=== PATIENT | female | born 1940 ===

== ENCOUNTER 2021-12-17 07:24 | Outpatient (REF) | payer MEDICARE, SELFPAY ==
[2021-12-17 11:22] LABS: MANUAL DIFF FLAG NO
[2021-12-17 11:35] LABS: Basophils Percent Auto 0.3 % (0-2); Eosinophils Absolute Auto 0.1 X10*3/uL (0.0-0.4); Eosinophils Percent Auto 1.5 % (0-4); Hematocrit 41.6 % (37.0-47.0); Hemoglobin 13.2 g/dl (12.0-16.0); Imm Gran Abs Auto 0.01 X10*3/uL (0.00-0.03); Imm Gran Pct Auto 0.2 % (0.0-0.4); Lymphocytes Absolute Auto 2.2 X10*3/uL (1.2-4.9); Lymphocytes Percent Auto 36.1 % (20-40); Mean Corpuscular HGB Conc 31.7 g/dl (31.0-35.0); Mean Corpuscular Volume 97.7 fL (80.0-98.0); Mean Platelet Volume 10.6 fL (9.4-12.3); Monocytes Absolute Auto 0.4 X10*3/uL (0.1-1.2); Neutrophils Absolute Auto 3.3 x10*3/uL (2.0-8.3); Neutrophils Percent Auto 54.9 % (45-73); Platelet Count 204 X10*3/uL (160-400); Red Blood Count 4.26 X10*6/uL (4.20-5.50); Red Cell Distribution Width 12.9 % (11.0-16.0)
[2021-12-17 12:01] LABS: Alanine Aminotransferase 17 U/L (0-31); Albumin Level 4.2 g/dL (3.5-5.0); Alkaline Phosphatase 82 U/L (39-117); Anion Gap 12 (12-20); Aspartate Amino Transferase 20 U/L (5-31); Bilirubin Total 0.5 mg/dL (0.0-1.0); Blood Urea Nitrogen 18 mg/dL (9-16); Calcium 9.7 mg/dL (8.4-10.2); Carbon Dioxide 29 mmol/L (22-29); Chloride 104 mmol/L (96-108); Cholesterol 215 mg/dL; Estimated Glomerular Filt Rate > 60; Glucose Fasting 101 mg/dL (60-99); HDL Cholesterol 77 mg/dL; LDL Cholesterol Calculated 126 mg/dl; Potassium 4.3 mmol/L (3.3-5.1); Sodium 141 mmol/L (135-145); Total Protein 7.1 g/dL (6.5-8.0); Triglycerides 62 mg/dL
[2021-12-17 12:11] LABS: TSH reflex Free T4 1.03 uIU/mL (0.32-4.0); Vitamin D 25-OH Total 16.5 ng/mL (>30)
[2021-12-17 12:37] LABS: Folate 12.7 ng/mL (> or = 4.0); Vitamin B12 277 pg/mL (200-900)
== END 2021-12-17 07:25 | disposition home or self-care (01) ==
LOC: HO.HMGCLDS 07:24
PROVIDERS: Visit Provider Internal Medicine
DX: I10 Essential (primary) hypertension (principal); E53.8 Deficiency of other specified B group vitamins; E55.9 Vitamin D deficiency, unspecified
CPT/HCPCS: 36415; 80053; 80061; 82306; 82607; 82746; 84443; 85025

== ENCOUNTER 2022-11-28 10:03 | Outpatient (REF) | payer MEDICARE, SELFPAY ==
[2022-11-28 11:19] LABS: MANUAL DIFF FLAG NO
[2022-11-28 11:34] LABS: Basophils Percent Auto 0.7 % (0-2); Eosinophils Absolute Auto 0.1 X10*3/uL (0.0-0.4); Eosinophils Percent Auto 0.8 % (0-4); Hematocrit 42.6 % (37.0-47.0); Hemoglobin 13.9 g/dl (12.0-16.0); Imm Gran Abs Auto 0.02 X10*3/uL (0.00-0.03); Imm Gran Pct Auto 0.3 % (0.0-0.4); Lymphocytes Absolute Auto 1.8 X10*3/uL (1.2-4.9); Lymphocytes Percent Auto 29.4 % (20-40); Mean Corpuscular HGB Conc 32.6 g/dl (31.0-35.0); Mean Corpuscular Hemoglobin 31.1 pg (27.0-33.0); Mean Corpuscular Volume 95.3 fL (80.0-98.0); Monocytes Absolute Auto 0.3 X10*3/uL (0.1-1.2); Monocytes Percent Auto 5.5 % (2-11); Neutrophils Absolute Auto 3.9 x10*3/uL (2.0-8.3); Neutrophils Percent Auto 63.3 % (45-73); Platelet Count 227 X10*3/uL (160-400); Red Blood Count 4.47 X10*6/uL (4.20-5.50); Red Cell Distribution Width 12.6 % (11.0-16.0); White Blood Count 6.2 X10*3/uL (4.8-10.8)
[2022-11-28 12:02] LABS: Alanine Aminotransferase 18 U/L (0-31); Albumin Level 4.3 g/dL (3.5-5.0); Alkaline Phosphatase 84 U/L (39-117); Anion Gap 15 (12-20); Aspartate Amino Transferase 18 U/L (5-31); Bilirubin Total 0.8 mg/dL (0.0-1.0); Blood Urea Nitrogen 17 mg/dL (9-16); Calcium 9.5 mg/dL (8.4-10.2); Carbon Dioxide 29 mmol/L (22-29); Chloride 104 mmol/L (96-108); Cholesterol 229 mg/dL; Estimated Glomerular Filt Rate > 60; Glucose Fasting 96 mg/dL (60-99); HDL Cholesterol 74 mg/dL; LDL Cholesterol Calculated 143 mg/dl; Potassium 4.7 mmol/L (3.3-5.1); Sodium 143 mmol/L (135-145); Triglycerides 61 mg/dL
[2022-11-28 12:17] LABS: TSH reflex Free T4 0.69 uIU/mL (0.32-4.0); Vitamin B12 267 pg/mL (200-900); Vitamin D 25-OH Total 27.7 ng/mL (>30)
== END 2022-11-28 10:04 | disposition home or self-care (01) ==
LOC: HO.HMGCLDS 10:03
PROVIDERS: PCP Internal Medicine; Visit Provider Internal Medicine
DX: E53.8 Deficiency of other specified B group vitamins (principal); E55.9 Vitamin D deficiency, unspecified; I10 Essential (primary) hypertension
CPT/HCPCS: 36415; 80053; 80061; 82306; 82607; 82746; 84443; 85025

== ENCOUNTER 2023-06-27 08:12 | Outpatient (REF) | payer MEDICARE, SELFPAY ==
[2023-06-27 11:11] LABS: MANUAL DIFF FLAG NO
[2023-06-27 11:36] LABS: Basophils Percent Auto 0.5 % (0-2); Eosinophils Absolute Auto 0.2 X10*3/uL (0.0-0.4); Eosinophils Percent Auto 3.2 % (0-4); Hematocrit 40.7 % (37.0-47.0); Hemoglobin 13.1 g/dl (12.0-16.0); Imm Gran Abs Auto 0.02 X10*3/uL (0.00-0.03); Imm Gran Pct Auto 0.4 % (0.0-0.4); Lymphocytes Absolute Auto 2.1 X10*3/uL (1.2-4.9); Lymphocytes Percent Auto 37.3 % (20-40); Mean Corpuscular HGB Conc 32.2 g/dl (31.0-35.0); Mean Corpuscular Hemoglobin 30.8 pg (27.0-33.0); Mean Corpuscular Volume 95.8 fL (80.0-98.0); Mean Platelet Volume 9.8 fL (9.4-12.3); Monocytes Absolute Auto 0.4 X10*3/uL (0.1-1.2); Monocytes Percent Auto 6.4 % (2-11); Neutrophils Absolute Auto 2.9 x10*3/uL (2.0-8.3); Neutrophils Percent Auto 52.2 % (45-73); Platelet Count 232 X10*3/uL (160-400); Red Blood Count 4.25 X10*6/uL (4.20-5.50); Red Cell Distribution Width 12.7 % (11.0-16.0); White Blood Count 5.6 X10*3/uL (4.8-10.8)
[2023-06-27 11:54] LABS: Alanine Aminotransferase 15 U/L (0-31); Alkaline Phosphatase 69 U/L (39-117); Anion Gap 10 (12-20); Aspartate Amino Transferase 19 U/L (5-31); Bilirubin Total 0.7 mg/dL (0.0-1.0); Blood Urea Nitrogen 16 mg/dL (9-16); Calcium 9.5 mg/dL (8.4-10.2); Carbon Dioxide 29 mmol/L (22-29); Chloride 105 mmol/L (96-108); Cholesterol 204 mg/dL (<200); Estimated Glomerular Filt Rate > 60; Glucose Fasting 95 mg/dL (60-99); HDL Cholesterol 70 mg/dL (>40); LDL Cholesterol Calculated 124 mg/dL (<100); Potassium 4.1 mmol/L (3.3-5.1); Sodium 140 mmol/L (135-145); Total Protein 6.9 g/dL (6.5-8.0); Triglycerides 51 mg/dL (<150)
[2023-06-27 12:18] LABS: Folate 13.8 ng/mL (> or = 4.0); Vitamin B12 200 pg/mL (200-900)
== END 2023-06-27 08:13 | disposition home or self-care (01) ==
LOC: HO.HMGCLDS 08:12
PROVIDERS: PCP Internal Medicine; Visit Provider Internal Medicine
DX: I10 Essential (primary) hypertension (principal); E53.8 Deficiency of other specified B group vitamins; F41.9 Anxiety disorder, unspecified; E55.9 Vitamin D deficiency, unspecified
CPT/HCPCS: 36415; 80053; 80061; 82306; 82607; 82746; 85025

== ENCOUNTER 2023-07-01 10:05 | Outpatient (AMB) | payer MEDICARE, SELFPAY ==
[2023-07-01 10:14] VITALS: BP 128/66; PULSE 77; O2SAT 98; BMI 26.3
--- NOTE | 2023-07-01 10:14 | A.OFFPC_ITS ---
Vital Signs 07/01/23 10:14 Height 5 ft 5 in Weight 158 lb BMI 26.3 BP 128/66 Blood Pressure Location Lt brachial Position Sitting Pulse 77 Pulse Source Pulse Oximeter Pulse Oximetry (%) 98 Oxygen Delivery Method Room Air Intake Visit Reasons: 6m follow up HTN Intake Note: Pt is here today for 6 months follow up visit. Allergies No Known Allergies Allergy (Verified 07/01/23 10:16) Medication List - Last Reconciled 07/01/23 by Tess Kee MD amlodipine 5 mg PO BID aspirin 325 mg PO DAILY cholecalciferol (vitamin D3) 50 mcg PO DAILY naproxen sodium (Aleve) 220 mg PO BID PRN sertraline 50 mg PO DAILY vitamin P42-yhhoe acid 500-400 mcg 1 tab PO DAILY Tobacco use date assessed: 07/01/23 Fall risk assessment: No Falls in past year Last assessed Fall Risk: 07/01/23 Dental Screening Dental Screen Date: 07/01/23 Did you have a dental visit in the last 12 months?: No Did you have a dental problem in the last 6 months where you did not have access to dental care?: No Was dental information given to patient?: Patient declined HPI 6m follow up HTN HPI Details Pt presents for f/u HTN, stable on Amlodipine. She has been following low-cholesterol diet [facility] Medical History (Updated 07/01/23 @ 11:22 by Tess Kee MD) Vitamin D deficiency Vitamin B 12 deficiency Normal breast exam HTN (hypertension) Surgical History Hx of lymph node biopsy History of total left knee replacement History of ear surgery Family History Father Stroke Mother No problems noted. Social History Housing: House Patient Tobacco Use Status: Never used Tobacco e-Cigarette/Vaping Use: Never Used Current occupational status: retired Cognitive needs: No Hearing needs: No Vision needs: No Questionnaire Thrive Questionnaire Date Thrive assessed: 11/28/22 AUDIT C Alcohol Use Questionnaire (AUDIT-C) 1. How often do you have a drink containing alcohol?: Never 3. How often do you have six or more drinks on one occasion?: Never Total Score: 0 NÉSTOR-7 AMB Questionnaire NÉSTOR-7 Date NÉSTOR - 7 assessed: 11/28/22 Source: Developed by DrsJackie Pride, Noy Pop, Yomi Julio and colleagues, with an educational baudilio from [employer]. Review of Systems Const All systems reviewed & are unremarkable except as noted in HPI and below Reports no additional complaints Eyes Reports no additional complaints ENT Reports no additional complaints Card Reports no additional complaints Resp Reports no additional complaints GI Reports no additional complaints Physical exam (Primary Care) Vital Signs: Last Vital Signs Pulse 77 07/01/23 10:14 BP 128/66 07/01/23 10:14 Pulse Ox 98 07/01/23 10:14 Oxygen Delivery Method Room Air 07/01/23 10:14 BMI result Body Mass Index 26.3 Tobacco/Smoking Status: Tobacco use Status Tobacco use date assessed 07/01/23 07/01/23 10:19 Patient Tobacco Use Status Never used Tobacco 07/01/23 10:19 e-Cigarette/Vaping Use Never Used 07/01/23 10:19 Thrive Assessment: Date of Thrive Assessment Date Thrive assessed 11/28/22 07/01/23 10:19 Const General: no acute distress HENMT Ears: hearing grossly normal bilaterally Face and sinus: Yes normal facial exam Eyes General: appearance normal, both eyes and all related structures Neck Neck: Yes supple Resp Effort & Inspection: normal respiratory effort Auscultation: clear to auscultation bilaterally Cardio Rhythm: regular rhythm Heart sounds: S1 normal heart sound present and S2 normal heart sound present GI Inspection: Yes normal to inspection Palpation (GI): Soft to palpation Percussion: Yes normal to percussion Auscultation: normal bowel sounds Assessment and Plan Assessment & Plan (1) Hyperlipidemia: Comment: Diet controlled Code(s): E78.5 - Hyperlipidemia, unspecified (2) HTN (hypertension): Code(s): I10 - Essential (primary) hypertension Plan: Continue amlodipine and follow-up in 6 months with a fasting labs before Orders: Orders Comprehensive [place]yer. Panel Fast 6 Months E53.8 - Deficiency of other specified B group vitamins, E78.5 - Hyperlipidemia, unspecified, I10 - Essential (primary) hypertension Lipid Panel 6 Months E53.8 - Deficiency of other specified B group vitamins, E78.5 - Hyperlipidemia, unspecified, I10 - Essential (primary) hypertension Complete Blood Count Auto Diff 6 Months E53.8 - Deficiency of other specified B group vitamins, E78.5 - Hyperlipidemia, unspecified, I10 - Essential (primary) hypertension Vitamin B12 6 Months E53.8 - Deficiency of other specified B group vitamins, E78.5 - Hyperlipidemia, unspecified, I10 - Essential (primary) hypertension Medications: New vitamin D11-uuhdl acid 500-400 mcg administer with a meal 1 tab PO DAILY 90 tabs 3RF Discontinued sertraline Discontinued Reason: Doctor's Order 50 mg PO DAILY 90 tabs 0RF Coding Level of Care Code Est Pt Level 3 (64761) Diagnoses Hyperlipidemia E78.5 HTN (hypertension) I10
== END 2023-07-01 11:23 | disposition home or self-care (01) ==
PROVIDERS: Visit Provider Internal Medicine
DX: E78.5 Hyperlipidemia, unspecified (principal); I10 Essential (primary) hypertension
CPT/HCPCS: 99213

== ENCOUNTER 2023-10-23 12:59 | Outpatient (AMB) | payer MEDICARE, SELFPAY ==
[2023-10-23 13:34] VITALS: BP 142/80; PULSE 92; O2SAT 96; BMI 26.6
--- NOTE | 2023-10-23 13:34 | A.OFFPC_ITS ---
Vital Signs 10/23/23 13:34 Height 5 ft 5 in Weight 160 lb BMI 26.6 BP 142/80 H Blood Pressure Location Rt brachial Position Sitting Pulse 92 Pulse Source Pulse Oximeter Pulse Oximetry (%) 96 Oxygen Delivery Method Room Air Intake Visit Reasons: cold symptoms Intake Note: Pt is here today for a sick visit. Pt c/o cough,congestion chills, chest tightness and upper back pain and headaches since Friday. Allergies No Known Allergies Allergy (Verified 03/25/24 09:54) Medication List - Last Reconciled 10/23/23 by Tess Kee MD amlodipine 5 mg PO BID azithromycin For 250 mg dose pack: take 500 mg today (day 1), then 250 mg for 4 days (days 2-5) PO cholecalciferol (vitamin D3) 50 mcg PO DAILY folic acid 0.4 mg PO DAILY mecobalamin (vitamin B12) 500 mcg PO .QD vitamin S49-lccac acid 500-400 mcg 1 tab PO DAILY Tobacco use date assessed: 10/23/23 Fall risk assessment: No Falls in past year Last assessed Fall Risk: 10/23/23 Dental Screening Dental Screen Date: 10/23/23 Did you have a dental visit in the last 12 months?: Yes Did you have a dental problem in the last 6 months where you did not have access to dental care?: No Was dental information given to patient?: Patient has dentist HPI cold symptoms HPI Details Pt presents c/o sinus congestion, body aches, cough for 1 week, R side chest pain worse with deep inspiration. PFSH Medical History Vitamin D deficiency Vitamin B 12 deficiency Normal breast exam HTN (hypertension) Surgical History Hx of lymph node biopsy History of total left knee replacement History of ear surgery Family History Father Stroke Mother No problems noted. Social History Housing: House Patient Tobacco Use Status: Never used Tobacco e-Cigarette/Vaping Use: Never Used service: No Current occupational status: retired Cognitive needs: No Hearing needs: No Vision needs: No Questionnaire PHQ-9 Over the last 2 weeks, how often have you been bothered by any of the following problems? 1. Little interest or pleasure in doing things: not at all 2. Feeling down, depressed, or hopeless: not at all 3. Trouble falling or staying asleep, or sleeping too much: not at all 4. Feeling tired or having little energy: several days 5. Poor appetite or overeating: several days 6. Feeling bad about yourself - or that you are a failure or have let yourself or your family down: not at all 7. Trouble concentrating on things, such as reading the newspaper or watching television: not at all 8. Moving or speaking so slowly that other people could have noticed. Or the opposite - being so fidgety or restless that you have been moving around a lot more than usual: not at all 9. Thoughts that you would be better off or of hurting yourself in some way: not at all Total score: 2 Depression Screening Interpretation: Negative Depression Screening Done: Yes Source: Developed by Drs. Jack Pride, Noy Pop, Yomi Julio and colleagues, with an educational baudilio from [employer]. Thrive Questionnaire Date Thrive assessed: 10/23/23 I am a: Patient What is your living situation today?: I have a steady place to live Within the past 12 months, did the food you bought not last and you didn't have the money to get more?: Never true Within the past 12 months, did you worry whether your food would run out before you got money to buy more?: Never true Do you have trouble paying for medicines?: No Do you have trouble getting transportation to medical appointments?: No Do you have trouble paying your heating and electricity bill?: No Do you have trouble taking care of your child, family member or friend?: No Do you have trouble with day-to-day activities such as bathing, preparing meals, shopping, managing finances, etc.?: No Are you currently unemployed and looking for a job?: No Are you interested in more education?: No Please select the resources that you would like help with: None AUDIT C Alcohol Use Questionnaire (AUDIT-C) 1. How often do you have a drink containing alcohol?: Never 3. How often do you have six or more drinks on one occasion?: Never Total Score: 0 NÉSTOR-7 AMB Questionnaire NÉSTOR-7 Date NÉSTOR - 7 assessed: 10/23/23 Feeling nervous, anxious, or on edge: 0 = Not at all Not being able to stop or control worryin = Not at all Worrying too much about different things: 0 = Not at all Trouble relaxin = Not at all Being so restless that it is hard to sit still: 0 = Not at all Becoming easily annoyed or irritable: 0 = Not at all Feeling afraid as if something awful might happen: 0 = Not at all Total NÉSTOR-7 score (0-4 normal; 5-9 mild; 10-14 moderate; 15-21 severe): 0 Source: Developed by Drs. Jack Pride, Noy Pop, Yomi Julio and colleagues, with an educational baudilio from [employer]. Review of Systems Const All systems reviewed & are unremarkable except as noted in HPI and below Reports no additional complaints Eyes Reports no additional complaints ENT Reports no additional complaints Card Reports no additional complaints Resp Reports no additional complaints GI Reports no additional complaints Physical exam (Primary Care) Vital Signs: Last Vital Signs Pulse 92 10/23/23 13:34 BP 142/80 H 10/23/23 13:34 Pulse Ox 96 10/23/23 13:34 Oxygen Delivery Method Room Air 10/23/23 13:34 BMI result Body Mass Index 26.6 Tobacco/Smoking Status: Tobacco use Status Tobacco use date assessed 10/23/23 10/23/23 13:35 Patient Tobacco Use Status Never used Tobacco 10/23/23 13:35 e-Cigarette/Vaping Use Never Used 10/23/23 13:35 PHQ-9: PHQ-9 Score PHQ-9: Total score 2 10/23/23 14:21 Depression Screening Interpretation: Negative Thrive Assessment: Date of Thrive Assessment Date Thrive assessed 10/23/23 10/23/23 13:48 Const General: no acute distress HENMT Head: Yes normal to inspection Ears: hearing grossly normal bilaterally and TM's normal bilaterally Face and sinus: Yes normal facial exam Throat: Yes posterior oropharynx normal Eyes General: appearance normal, both eyes and all related structures Neck Neck: Yes supple Resp Effort & Inspection: normal respiratory effort Auscultation: clear to auscultation bilaterally Cardio Rhythm: regular rhythm Heart sounds: S1 normal heart sound present and S2 normal heart sound present Assessment and Plan Assessment & Plan (1) HTN (hypertension): Code(s): I10 - Essential (primary) hypertension Plan: Continue current medications (2) URI (upper respiratory infection): Code(s): J06.9 - Acute upper respiratory infection, unspecified Plan: Z-Cooper as prescribed and supportive care discussed with the patient Medications: New azithromycin For 250 mg dose pack: take 500 mg today (day 1), then 250 mg for 4 days (days 2-5) PO 6 tabs 0RF Coding Level of Care Code Est Pt Level 3 (87061) Diagnoses HTN (hypertension) I10 URI (upper respiratory infection) J06.9
== END 2023-10-23 14:39 | disposition home or self-care (01) ==
LOC: HO.HMGC 12:59
PROVIDERS: PCP Internal Medicine; Visit Provider Internal Medicine
DX: I10 Essential (primary) hypertension (principal); J06.9 Acute upper respiratory infection, unspecified
CPT/HCPCS: 99499

== ENCOUNTER 2023-11-27 08:24 | Outpatient (REF) | payer MEDICARE, SELFPAY ==
[2023-11-27 11:35] LABS: MANUAL DIFF FLAG NO
[2023-11-27 12:06] LABS: Basophils Percent Auto 0.5 % (0-2); Eosinophils Absolute Auto 0.1 X10*3/uL (0.0-0.4); Eosinophils Percent Auto 1.4 % (0-4); Hematocrit 41.8 % (37.0-47.0); Hemoglobin 13.6 g/dl (12.0-16.0); Imm Gran Abs Auto 0.01 X10*3/uL (0.00-0.03); Imm Gran Pct Auto 0.2 % (0.0-0.4); Lymphocytes Absolute Auto 2.3 X10*3/uL (1.2-4.9); Lymphocytes Percent Auto 40.2 % (20-40); Mean Corpuscular HGB Conc 32.5 g/dl (31.0-35.0); Mean Corpuscular Hemoglobin 31.6 pg (27.0-33.0); Mean Platelet Volume 9.7 fL (9.4-12.3); Monocytes Absolute Auto 0.4 X10*3/uL (0.1-1.2); Monocytes Percent Auto 6.3 % (2-11); Neutrophils Absolute Auto 2.9 x10*3/uL (2.0-8.3); Neutrophils Percent Auto 51.4 % (45-73); Platelet Count 265 X10*3/uL (160-400); Red Blood Count 4.31 X10*6/uL (4.20-5.50); Red Cell Distribution Width 12.8 % (11.0-16.0); White Blood Count 5.7 X10*3/uL (4.8-10.8)
[2023-11-27 12:16] LABS: Alanine Aminotransferase 16 U/L (0-31); Alkaline Phosphatase 78 U/L (39-117); Anion Gap 9 (12-20); Aspartate Amino Transferase 19 U/L (5-31); Bilirubin Total 0.6 mg/dL (0.0-1.0); Blood Urea Nitrogen 14 mg/dL (9-16); Calcium 9.3 mg/dL (8.4-10.2); Carbon Dioxide 31 mmol/L (22-29); Chloride 104 mmol/L (96-108); Cholesterol 221 mg/dL (<200); Estimated Glomerular Filt Rate > 60; Glucose Fasting 96 mg/dL (60-99); HDL Cholesterol 79 mg/dL (>40); LDL Cholesterol Calculated 131 mg/dL (<100); Potassium 4.3 mmol/L (3.3-5.1); Sodium 140 mmol/L (135-145); Total Protein 7.2 g/dL (6.5-8.0); Triglycerides 57 mg/dL (<150)
[2023-11-27 12:29] LABS: Vitamin B12 493 pg/mL (200-900)
== END 2023-11-27 08:25 | disposition home or self-care (01) ==
LOC: HO.HMGCLDS 08:24
PROVIDERS: PCP Internal Medicine; Visit Provider Internal Medicine
DX: E78.5 Hyperlipidemia, unspecified (principal); E53.8 Deficiency of other specified B group vitamins; I10 Essential (primary) hypertension
CPT/HCPCS: 36415; 80053; 80061; 82607; 85025

== ENCOUNTER 2023-12-01 10:17 | Outpatient (AMB) | payer MEDICARE, SELFPAY ==
[2023-12-01 10:19] VITALS: BP 146/76; PULSE 77; O2SAT 98; BMI 27.0
--- NOTE | 2023-12-01 10:19 | A.OFFPC_ITS ---
Vital Signs 12/01/23 10:19 Height 5 ft 5 in Weight 162 lb BMI 27.0 BP 146/76 H Blood Pressure Location Lt brachial Position Sitting Pulse 77 Pulse Source Pulse Oximeter Pulse Oximetry (%) 98 Oxygen Delivery Method Room Air Intake Visit Reasons: Annual PE Intake Note: Pt is here today for PE. Allergies No Known Allergies Allergy (Verified 12/01/23 10:21) Medication List - Last Reconciled 12/01/23 by Tess Kee MD amlodipine 10 mg PO DAILY cholecalciferol (vitamin D3) 50 mcg PO DAILY folic acid 0.4 mg PO DAILY mecobalamin (vitamin B12) 500 mcg PO .QD metoprolol succinate ER 25 mg PO DAILY vitamin A63-bhdmv acid 500-400 mcg 1 tab PO DAILY Tobacco use date assessed: 12/01/23 Fall risk assessment: No Falls in past year Last assessed Fall Risk: 12/01/23 Dental Screening Dental Screen Date: 12/01/23 Did you have a dental visit in the last 12 months?: Yes Did you have a dental problem in the last 6 months where you did not have access to dental care?: No Was dental information given to patient?: Patient has dentist HPI Annual PE HPI Details Patient presents for physical. She complains of insomnia an episode of mid chest discomfort when under lot of stress. Patient had a cardiac workup in the past included echocardiogram EKG possible stress test which was negative. She exercises 5 times a week at [employer] riding a stationary bike and elliptical without exertional chest pain shortness for breath. Patient used to take sertraline after her son from liver failure. She denies suicidal ideation or depression. Patient has not been taking amlodipine twice a day on daily basis only when her blood pressure is high and she has a headache. [facility] Medical History Vitamin D deficiency Vitamin B 12 deficiency Normal breast exam HTN (hypertension) Surgical History Hx of lymph node biopsy History of total left knee replacement History of ear surgery Family History Father Stroke Mother No problems noted. Social History Housing: House Patient Tobacco Use Status: Never used Tobacco e-Cigarette/Vaping Use: Never Used Current occupational status: retired Cognitive needs: No Hearing needs: No Vision needs: No Questionnaire PHQ-9 Over the last 2 weeks, how often have you been bothered by any of the following problems? 1. Little interest or pleasure in doing things: not at all 2. Feeling down, depressed, or hopeless: not at all 3. Trouble falling or staying asleep, or sleeping too much: not at all 4. Feeling tired or having little energy: not at all 5. Poor appetite or overeating: not at all 6. Feeling bad about yourself - or that you are a failure or have let yourself or your family down: not at all 7. Trouble concentrating on things, such as reading the newspaper or watching television: not at all 8. Moving or speaking so slowly that other people could have noticed. Or the opposite - being so fidgety or restless that you have been moving around a lot more than usual: not at all 9. Thoughts that you would be better off or of hurting yourself in some way: not at all Total score: 0 Depression Screening Interpretation: Negative Depression Screening Done: Yes Source: Developed by Drs. Jack Pride, Noy Pop, Yomi Julio and colleagues, with an educational baudilio from [employer]. Thrive Questionnaire Date Thrive assessed: 12/01/23 I am a: Patient What is your living situation today?: I have a steady place to live Within the past 12 months, did the food you bought not last and you didn't have the money to get more?: Never true Within the past 12 months, did you worry whether your food would run out before you got money to buy more?: Never true Do you have trouble paying for medicines?: No Do you have trouble getting transportation to medical appointments?: No Do you have trouble paying your heating and electricity bill?: No Do you have trouble taking care of your child, family member or friend?: No Do you have trouble with day-to-day activities such as bathing, preparing meals, shopping, managing finances, etc.?: No Are you currently unemployed and looking for a job?: No Are you interested in more education?: No Please select the resources that you would like help with: None Currently or been in a relationship where the following occur: no concerns reported THRIVE Score: 0 AUDIT C Alcohol Use Questionnaire (AUDIT-C) 1. How often do you have a drink containing alcohol?: Never 3. How often do you have six or more drinks on one occasion?: Never Total Score: 0 NÉSTOR-7 AMB Questionnaire NÉSTOR-7 Date NÉSTOR - 7 assessed: 10/23/23 Source: Developed by Drs. Jack Pride, Noy Pop, Yomi Julio and colleagues, with an educational baudilio from [employer]. Review of Systems Const All systems reviewed & are unremarkable except as noted in HPI and below Reports no additional complaints Eyes Reports no additional complaints ENT Reports no additional complaints Card Reports no additional complaints Resp Reports no additional complaints GI Reports no additional complaints Reports no additional complaints Musc Reports no additional complaints Physical exam (Primary Care) Vital Signs: Last Vital Signs Pulse 77 12/01/23 10:19 BP 146/76 H 12/01/23 10:19 Pulse Ox 98 12/01/23 10:19 Oxygen Delivery Method Room Air 12/01/23 10:19 BMI result Body Mass Index 27.0 Tobacco/Smoking Status: Tobacco use Status Tobacco use date assessed 12/01/23 12/01/23 10:25 Patient Tobacco Use Status Never used Tobacco 12/01/23 10:25 e-Cigarette/Vaping Use Never Used 12/01/23 10:19 PHQ-9: PHQ-9 Score PHQ-9: Total score 0 12/01/23 10:45 Depression Screening Interpretation: Negative Thrive Assessment: Date of Thrive Assessment Date Thrive assessed 12/01/23 12/01/23 10:25 Currently or been in a relationship where the following occur: no concerns reported Const General: no acute distress HENMT Head: Yes normal to inspection Face and sinus: Yes normal facial exam Mouth: Normal oral and palatal mucosa present Throat: Yes posterior oropharynx normal Eyes General: appearance normal, both eyes and all related structures Neck Neck: Yes no lymphadenopathy and Yes supple Resp Effort & Inspection: normal respiratory effort Auscultation: clear to auscultation bilaterally Cardio Rhythm: regular rhythm Heart sounds: S1 normal heart sound present and S2 normal heart sound present GI Inspection: Yes normal to inspection Palpation (GI): Soft to palpation Percussion: Yes normal to percussion Auscultation: normal bowel sounds Assessment and Plan Assessment & Plan (1) Hyperlipidemia: Comment: Diet controlled, patient refuses statin Code(s): E78.5 - Hyperlipidemia, unspecified Plan: Continue low-cholesterol diet (2) HTN (hypertension): Code(s): I10 - Essential (primary) hypertension Plan: Change amlodipine to 10 mg in the morning and add metoprolol succinate 25 mg q.h.s., follow-up in 1 month (3) Annual physical exam: Code(s): Z00.00 - Encounter for general adult medical examination without abnormal findings Plan: Well-balanced diet regular exercise stress management discussed with the patient (4) Anxiety: Code(s): F41.9 - Anxiety disorder, unspecified Plan: Stress management discussed with the patient. (5) Chest pain: Comment: Negative cardiac workup 2021 Code(s): R07.9 - Chest pain, unspecified Plan: EKG showed normal sinus rhythm left axis deviation no acute ST-T changes. Start 25 mg of metoprolol succinate q.h.s. follow-up in 1 month Orders: Orders AMB EKG-In Office Today E78.5 - Hyperlipidemia, unspecified, I10 - Essential (primary) hypertension, R07.9 - Chest pain, unspecified Medications: New amlodipine 10 mg PO DAILY 90 tabs 1RF metoprolol succinate ER 25 mg PO DAILY 90 tabs 0RF Discontinued amlodipine Discontinued Reason: Doctor's Order 5 mg PO BID 180 tabs 3RF Coding Level of Care Code Est Pt Prev Care >65y(30334) Diagnoses Hyperlipidemia E78.5 HTN (hypertension) I10 Annual physical exam Z00.00 Anxiety F41.9 Chest pain R07.9
== END 2023-12-01 11:09 | disposition home or self-care (01) ==
PROVIDERS: PCP Internal Medicine; Visit Provider Internal Medicine
DX: E78.5 Hyperlipidemia, unspecified (principal); I10 Essential (primary) hypertension; Z00.00 Encounter for general adult medical examination without abnormal findings; F41.9 Anxiety disorder, unspecified; R07.9 Chest pain, unspecified
CPT/HCPCS: 99397

== ENCOUNTER 2024-01-08 11:04 | Outpatient (AMB) | payer MEDICARE, SELFPAY ==
[2024-01-08 11:41] VITALS: BP 126/66; PULSE 72; O2SAT 97; BMI 26.8
--- NOTE | 2024-01-08 11:41 | MHC.PC.OV ---
Vital Signs 01/08/24 11:41 Height 5 ft 5 in Weight 161 lb BMI 26.8 BP 126/66 Blood Pressure Location Lt brachial Position Sitting Pulse 72 Pulse Source Pulse Oximeter Pulse Oximetry (%) 97 Oxygen Delivery Method Room Air Intake Visit Reasons: 1 month follow up Allergies No Known Allergies Allergy (Verified 01/08/24 11:42) Medication List - Last Reconciled 01/08/24 by Tess Kee MD amlodipine 10 mg PO DAILY cholecalciferol (vitamin D3) 50 mcg PO DAILY folic acid 0.4 mg PO DAILY mecobalamin (vitamin B12) 500 mcg PO .QD metoprolol succinate ER 25 mg PO DAILY vitamin E16-qnupk acid 500-400 mcg 1 tab PO DAILY Tobacco use date assessed: 12/01/23 HPI 1 month follow up HPI Details Pt presents for f/u HTN, improved. Patient reports feeling calmer taking metoprolol at night and able to sleep better. [facility] Medical History Vitamin D deficiency Vitamin B 12 deficiency Normal breast exam HTN (hypertension) Surgical History Hx of lymph node biopsy History of total left knee replacement History of ear surgery Family History Father Stroke Mother No problems noted. Social History Housing: House Patient Tobacco Use Status: Never used Tobacco e-Cigarette/Vaping Use: Never Used Current occupational status: retired Cognitive needs: No Hearing needs: No Vision needs: No Questionnaire Thrive Questionnaire Date Thrive assessed: 12/01/23 NÉSTOR-7 AMB Questionnaire NÉSTOR-7 Date NÉSTOR - 7 assessed: 10/23/23 Source: Developed by Drs. Jack Pride, Noy Pop, Yomi Julio and colleagues, with an educational baudilio from [employer]. Review of Systems Const All systems reviewed & are unremarkable except as noted in HPI and below Reports no additional complaints Eyes Reports no additional complaints ENT Reports no additional complaints Card Reports no additional complaints Resp Reports no additional complaints GI Reports no additional complaints Reports no additional complaints Physical exam (Primary Care) Vital Signs: Last Vital Signs Pulse 72 01/08/24 11:41 BP 126/66 01/08/24 11:41 Pulse Ox 97 01/08/24 11:41 Oxygen Delivery Method Room Air 01/08/24 11:41 BMI result Body Mass Index 26.8 Tobacco/Smoking Status: Tobacco use Status Tobacco use date assessed 12/01/23 01/08/24 11:43 Patient Tobacco Use Status Never used Tobacco 01/08/24 11:43 e-Cigarette/Vaping Use Never Used 01/08/24 11:43 Thrive Assessment: Date of Thrive Assessment Date Thrive assessed 12/01/23 01/08/24 11:43 Const General: no acute distress HENMT Head: Yes normal to inspection Ears: hearing grossly normal bilaterally Face and sinus: Yes normal facial exam Eyes General: appearance normal, both eyes and all related structures Neck Neck: Yes no lymphadenopathy and Yes supple Resp Effort & Inspection: normal respiratory effort Auscultation: clear to auscultation bilaterally Cardio Rhythm: regular rhythm Heart sounds: S1 normal heart sound present and S2 normal heart sound present Assessment and Plan Assessment & Plan (1) HTN (hypertension): Code(s): I10 - Essential (primary) hypertension Plan: Continue current medications, follow-up in 4 months (2) Hyperlipidemia: Comment: Diet controlled, patient refuses statin Code(s): E78.5 - Hyperlipidemia, unspecified Plan: Continue low-cholesterol diet Medications: Refilled metoprolol succinate ER 25 mg PO DAILY 90 tabs 3RF Coding Level of Care Code Est Pt Level 3 (54287) Diagnoses HTN (hypertension) I10 Hyperlipidemia E78.5
== END 2024-01-08 12:54 | disposition home or self-care (01) ==
PROVIDERS: PCP Internal Medicine; Visit Provider Internal Medicine
DX: I10 Essential (primary) hypertension (principal); E78.5 Hyperlipidemia, unspecified
CPT/HCPCS: 99213

== ENCOUNTER 2024-03-10 12:52 | Outpatient (AMB) | payer MEDICARE, SELFPAY ==
[2024-03-10 13:13] VITALS: BP 130/80; PULSE 84; O2SAT 97; BMI 26.6
--- NOTE | 2024-03-10 13:13 | MHC.PC.OV ---
Vital Signs 03/10/24 13:13 Height 5 ft 5 in Weight 160 lb BMI 26.6 BP 130/80 Blood Pressure Location Rt brachial Position Sitting Pulse 84 Pulse Source Pulse Oximeter Pulse Oximetry (%) 97 Oxygen Delivery Method Room Air Intake Visit Reasons: swollen ankles Intake Note: Pt is here today for a sick visit. Pt c/o swelling and pain in her ankles for almost a month. Pt also c/o panful lump on the L side of her abdomen. Allergies No Known Allergies Allergy (Verified 03/10/24 13:17) Medication List - Last Reconciled 03/10/24 by Tess Kee MD amlodipine 5 mg PO DAILY cholecalciferol (vitamin D3) 50 mcg PO DAILY folic acid 0.4 mg PO DAILY furosemide (Lasix) 20 mg PO DAILY mecobalamin (vitamin B12) 500 mcg PO .QD metoprolol succinate ER 25 mg PO DAILY valsartan 160 mg PO DAILY vitamin M35-esgpi acid 500-400 mcg 1 tab PO DAILY Tobacco use date assessed: 03/10/24 Fall risk assessment: No Falls in past year Last assessed Fall Risk: 03/10/24 Dental Screening Dental Screen Date: 12/01/23 HPI swollen ankles HPI Details Patient complains of increased lower extremity swelling since she increased dose of amlodipine to 10 mg a day. Patient denies dyspnea on exertion PND orthopnea. [facility] Medical History Vitamin D deficiency Vitamin B 12 deficiency Normal breast exam HTN (hypertension) Surgical History Hx of lymph node biopsy History of total left knee replacement History of ear surgery Family History Father Stroke Mother No problems noted. Social History Housing: House Patient Tobacco Use Status: Never used Tobacco e-Cigarette/Vaping Use: Never Used service: No Current occupational status: retired Cognitive needs: No Hearing needs: No Vision needs: No Questionnaire Thrive Questionnaire Date Thrive assessed: 12/01/23 NÉSTOR-7 AMB Questionnaire NÉSTOR-7 Date NÉSTOR - 7 assessed: 10/23/23 Source: Developed by Drs. Jack Pride, Noy Pop, Yomi Julio and colleagues, with an educational baudilio from [employer]. Review of Systems Const All systems reviewed & are unremarkable except as noted in HPI and below ENT Reports no additional complaints Card Reports no additional complaints Resp Reports no additional complaints GI Reports no additional complaints Reports no additional complaints Physical exam (Primary Care) Vital Signs: Last Vital Signs Pulse 84 03/10/24 13:13 Pulse Ox 97 03/10/24 13:13 Oxygen Delivery Method Room Air 03/10/24 13:13 BMI result Body Mass Index 26.6 Tobacco/Smoking Status: Tobacco use Status Tobacco use date assessed 03/10/24 03/10/24 13:21 Patient Tobacco Use Status Never used Tobacco 03/10/24 13:21 e-Cigarette/Vaping Use Never Used 03/10/24 13:14 Thrive Assessment: Date of Thrive Assessment Date Thrive assessed 12/01/23 03/10/24 13:14 Const General: no acute distress HENMT Head: Yes normal to inspection Eyes General: appearance normal, both eyes and all related structures Resp Effort & Inspection: normal respiratory effort Auscultation: clear to auscultation bilaterally Cardio Rhythm: regular rhythm Heart sounds: S1 normal heart sound present and S2 normal heart sound present GI Inspection: Yes normal to inspection Palpation (GI): Soft to palpation Percussion: Yes normal to percussion Auscultation: normal bowel sounds Extrem Other: Plus two pitting edema bilaterally Assessment and Plan Assessment & Plan (1) HTN (hypertension): Code(s): I10 - Essential (primary) hypertension Plan: Decrease amlodipine to 5 mg a day and add valsartan 160 mg. Patient will return for [place] blood pressure check in 2 weeks and basic metabolic panel will be obtained. Low-sodium diet and elevation of lower extremities are recommended. furosemide 20 mg for 3 days is prescribed. Orders: Orders Basic Metabolic Panel 2 Weeks I10 - Essential (primary) hypertension Medications: New furosemide (Lasix) 1 qd for 3 days, then 1 qod 20 mg PO DAILY 7 tabs 0RF valsartan 160 mg PO DAILY 90 tabs 0RF amlodipine 5 mg PO DAILY 90 tabs 0RF Discontinued amlodipine Discontinued Reason: Doctor's Order 10 mg PO DAILY 90 tabs 1RF Coding Level of Care Code Est Pt Level 3 (50632) Diagnoses HTN (hypertension) I10
== END 2024-03-10 14:37 | disposition home or self-care (01) ==
PROVIDERS: PCP Internal Medicine; Visit Provider Internal Medicine
DX: I10 Essential (primary) hypertension (principal)
CPT/HCPCS: 99213

== ENCOUNTER 2024-03-25 09:35 | Outpatient (REF) | payer MEDICARE, SELFPAY ==
[2024-03-25 11:16] LABS: Anion Gap 13 (12-20); Blood Urea Nitrogen 15 mg/dL (9-16); Calcium 9.6 mg/dL (8.4-10.2); Carbon Dioxide 27 mmol/L (22-29); Chloride 105 mmol/L (96-108); Estimated Glomerular Filt Rate > 60; Glucose Random 94 mg/dL (60-115); Sodium 141 mmol/L (135-145)
== END 2024-03-25 09:36 | disposition home or self-care (01) ==
LOC: HO.HMGCLDS 09:35
PROVIDERS: PCP Internal Medicine; Visit Provider Internal Medicine
DX: I10 Essential (primary) hypertension (principal)
CPT/HCPCS: 36415; 80048

== ENCOUNTER 2024-03-25 09:48 | Outpatient (AMB) | payer MEDICARE, SELFPAY ==
[2024-03-25 09:54] VITALS: BP 134/66; PULSE 90; O2SAT 95; BMI 25.8
--- NOTE | 2024-03-25 09:54 | A.OFFPC_ITS ---
Vital Signs 03/25/24 09:54 Height 5 ft 5 in Weight 155 lb BMI 25.8 BP 134/66 Blood Pressure Location Rt brachial Position Sitting Pulse 90 Pulse Source Pulse Oximeter Pulse Oximetry (%) 95 Oxygen Delivery Method Room Air Intake Visit Reasons: 2 week follow up Intake Note: Pt is here today for 2 weeks follow up on edema and BP. Allergies No Known Allergies Allergy (Verified 03/25/24 09:54) Medication List - Last Reconciled 03/25/24 by Tess Kee MD amlodipine 5 mg PO DAILY cholecalciferol (vitamin D3) 50 mcg PO DAILY folic acid 0.4 mg PO DAILY furosemide (Lasix) 20 mg PO DAILY mecobalamin (vitamin B12) 500 mcg PO .QD metoprolol succinate ER 25 mg PO DAILY valsartan 160 mg PO DAILY vitamin H06-pwarh acid 500-400 mcg 1 tab PO DAILY Tobacco use date assessed: 03/10/24 Dental Screening Dental Screen Date: 12/01/23 HPI 2 week follow up HPI Details Pt presents for f/u HTN and lower extremities swelling better since changing the meds. PFSH Medical History Vitamin D deficiency Vitamin B 12 deficiency Normal breast exam HTN (hypertension) Surgical History Hx of lymph node biopsy History of total left knee replacement History of ear surgery Family History Father Stroke Mother No problems noted. Social History Housing: House Patient Tobacco Use Status: Never used Tobacco e-Cigarette/Vaping Use: Never Used service: No Current occupational status: retired Cognitive needs: No Hearing needs: No Vision needs: No Questionnaire Thrive Questionnaire Date Thrive assessed: 12/01/23 NÉSTOR-7 AMB Questionnaire NÉSTOR-7 Date NÉSTOR - 7 assessed: 10/23/23 Source: Developed by Drs. Jack Pride, Noy Pop, Yomi Julio and colleagues, with an educational baudilio from [email or web address]. Review of Systems Const All systems reviewed & are unremarkable except as noted in HPI and below ENT Reports no additional complaints Card Reports no additional complaints Resp Reports no additional complaints GI Reports no additional complaints Reports no additional complaints Physical exam (Primary Care) Vital Signs: Last Vital Signs Pulse 90 03/25/24 09:54 BP 134/66 03/25/24 09:54 Pulse Ox 95 03/25/24 09:54 Oxygen Delivery Method Room Air 03/25/24 09:54 BMI result Body Mass Index 25.8 Tobacco/Smoking Status: Tobacco use Status Tobacco use date assessed 03/10/24 03/25/24 09:55 Patient Tobacco Use Status Never used Tobacco 03/25/24 09:55 e-Cigarette/Vaping Use Never Used 03/25/24 09:55 Thrive Assessment: Date of Thrive Assessment Date Thrive assessed 12/01/23 03/25/24 09:55 Const General: no acute distress HENMT Head: Yes normal to inspection Face and sinus: Yes normal facial exam Neck Neck: Yes supple Resp Effort & Inspection: normal respiratory effort Auscultation: clear to auscultation bilaterally Cardio Rhythm: regular rhythm Heart sounds: S1 normal heart sound present and S2 normal heart sound present GI Inspection: Yes normal to inspection Palpation (GI): Soft to palpation Percussion: Yes normal to percussion Auscultation: normal bowel sounds Assessment and Plan Assessment & Plan (1) HTN (hypertension): Code(s): I10 - Essential (primary) hypertension Plan: Continue current medications (2) Hyperlipidemia: Comment: Diet controlled, patient refuses statin Code(s): E78.5 - Hyperlipidemia, unspecified Plan: Continue low-cholesterol diet Orders: Orders Comprehensive [place]. Panel Fast 1 Month E78.5 - Hyperlipidemia, unspecified, I10 - Essential (primary) hypertension Lipid Panel 1 Month E78.5 - Hyperlipidemia, unspecified, I10 - Essential (primary) hypertension Coding Level of Care Code Est Pt Level 3 (74015) Diagnoses HTN (hypertension) I10 Hyperlipidemia E78.5
== END 2024-03-25 12:18 | disposition home or self-care (01) ==
LOC: HO.HMGC 09:48
PROVIDERS: PCP Internal Medicine; Visit Provider Internal Medicine
DX: I10 Essential (primary) hypertension (principal); E78.5 Hyperlipidemia, unspecified
CPT/HCPCS: 99213

== ENCOUNTER 2024-05-05 09:54 | Outpatient (AMB) | payer MEDICARE, SELFPAY ==
[2024-05-05 10:04] VITALS: BP 128/66; PULSE 79; O2SAT 97; BMI 25.5
--- NOTE | 2024-05-05 10:04 | A.OFFPC_ITS ---
Vital Signs 05/05/24 10:04 Height 5 ft 5 in Weight 153 lb BMI 25.5 BP 128/66 Blood Pressure Location Lt brachial Position Sitting Pulse 79 Pulse Source Pulse Oximeter Pulse Oximetry (%) 97 Oxygen Delivery Method Room Air Intake Visit Reasons: 4 month follow up Intake Note: Pt is here today for 4 month follow up visit on HTN. Allergies No Known Allergies Allergy (Verified 05/05/24 10:13) Medication List - Last Reconciled 05/05/24 by Tess Kee MD amlodipine 5 mg PO DAILY cholecalciferol (vitamin D3) 50 mcg PO DAILY folic acid 0.4 mg PO DAILY mecobalamin (vitamin B12) 500 mcg PO .QD valsartan 160 mg PO DAILY vitamin P10-gjvuc acid 500-400 mcg 1 tab PO DAILY Tobacco use date assessed: 05/05/24 Dental Screening Dental Screen Date: 12/01/23 HPI 4 month follow up HPI0 Details Patient presents for the follow-up on hypertension controlled on current medications. [facility] Medical History Vitamin D deficiency Vitamin B 12 deficiency Normal breast exam HTN (hypertension) Surgical History Hx of lymph node biopsy History of total left knee replacement History of ear surgery Family History Father Stroke Mother No problems noted. Social History Housing: House Patient Tobacco Use Status: Never used Tobacco e-Cigarette/Vaping Use: Never Used service: No Current occupational status: retired Cognitive needs: No Hearing needs: No Vision needs: No Questionnaire PHQ-9 Over the last 2 weeks, how often have you been bothered by any of the following problems? 1. Little interest or pleasure in doing things: not at all 2. Feeling down, depressed, or hopeless: several days 3. Trouble falling or staying asleep, or sleeping too much: several days 4. Feeling tired or having little energy: not at all 5. Poor appetite or overeating: not at all 6. Feeling bad about yourself - or that you are a failure or have let yourself or your family down: not at all 7. Trouble concentrating on things, such as reading the newspaper or watching television: not at all 8. Moving or speaking so slowly that other people could have noticed. Or the opposite - being so fidgety or restless that you have been moving around a lot more than usual: not at all 9. Thoughts that you would be better off or of hurting yourself in some way: not at all Total score: 2 Depression Screening Interpretation: Negative Depression Screening Done: Yes Source: Developed by Drs. Jack Pride, Noy Pop, Yomi Julio and colleagues, with an educational baudilio from [employer]. Thrive Questionnaire Date Thrive assessed: 05/05/24 I am a: Patient What is your living situation today?: I choose not to answer this question Within the past 12 months, did the food you bought not last and you didn't have the money to get more?: I choose not to answer this question Within the past 12 months, did you worry whether your food would run out before you got money to buy more?: I choose not to answer this question Do you have trouble paying for medicines?: I choose not to answer this question Do you have trouble getting transportation to medical appointments?: I choose not to answer this question Do you have trouble paying your heating and electricity bill?: I choose not to answer this question Do you have trouble taking care of your child, family member or friend?: I choose not to answer this question Do you have trouble with day-to-day activities such as bathing, preparing meals, shopping, managing finances, etc.?: I choose not to answer this question Are you currently unemployed and looking for a job?: I choose not to answer this question Are you interested in more education?: I choose not to answer this question Please select the resources that you would like help with: Housing/Longterm Currently or been in a relationship where the following occur: I choose not to answer THRIVE Score: 0 AUDIT C Alcohol Use Questionnaire (AUDIT-C) 1. How often do you have a drink containing alcohol?: Never Total Score: 0 NÉSTOR-7 AMB Questionnaire NÉSTOR-7 Date NÉSTOR - 7 assessed: 05/05/24 Feeling nervous, anxious, or on edge: 0 = Not at all Not being able to stop or control worryin = Not at all Worrying too much about different things: 0 = Not at all Trouble relaxin = Not at all Being so restless that it is hard to sit still: 0 = Not at all Becoming easily annoyed or irritable: 0 = Not at all Feeling afraid as if something awful might happen: 0 = Not at all Total NÉSTOR-7 score (0-4 normal; 5-9 mild; 10-14 moderate; 15-21 severe): 0 Source: Developed by Drs. Jack Pride, Noy Pop, Yomi Julio and colleagues, with an educational baudilio from [employer]. Review of Systems Const All systems reviewed & are unremarkable except as noted in HPI and below Eyes Reports no additional complaints ENT Reports no additional complaints Card Reports no additional complaints Resp Reports no additional complaints GI Reports no additional complaints Reports no additional complaints Physical exam (Primary Care) Vital Signs: Last Vital Signs Pulse 79 05/05/24 10:04 BP 128/66 05/05/24 10:04 Pulse Ox 97 05/05/24 10:04 Oxygen Delivery Method Room Air 05/05/24 10:04 BMI result Body Mass Index 25.5 Tobacco/Smoking Status: Tobacco use Status Tobacco use date assessed 05/05/24 05/05/24 10:15 Patient Tobacco Use Status Never used Tobacco 05/05/24 10:15 e-Cigarette/Vaping Use Never Used 05/05/24 10:04 PHQ-9: PHQ-9 Score PHQ-9: Total score 2 05/05/24 10:15 Depression Screening Interpretation: Negative Thrive Assessment: Date of Thrive Assessment Date Thrive assessed 05/05/24 05/05/24 10:15 Currently or been in a relationship where the following occur: I choose not to answer Const General: no acute distress HENMT Head: Yes normal to inspection Face and sinus: Yes normal facial exam Neck Neck: Yes supple Resp Effort & Inspection: normal respiratory effort Auscultation: clear to auscultation bilaterally Cardio Rhythm: regular rhythm Heart sounds: S1 normal heart sound present and S2 normal heart sound present Assessment and Plan Assessment & Plan (1) HTN (hypertension): Code(s): I10 - Essential (primary) hypertension Plan: Continue current medications follow-up in 4 months with a fasting labs before (2) Hyperlipidemia: Comment: Diet controlled, patient refuses statin Code(s): E78.5 - Hyperlipidemia, unspecified Plan: Continue low-cholesterol diet Orders: Orders Lipid Panel 4 Months E78.5 - Hyperlipidemia, unspecified, I10 - Essential (primary) hypertension Comprehensive [place]. Panel Fast 4 Months E78.5 - Hyperlipidemia, unspecified, I10 - Essential (primary) hypertension Complete Blood Count Auto Diff 4 Months E78.5 - Hyperlipidemia, unspecified, I10 - Essential (primary) hypertension TSH reflex Free T4 4 Months E78.5 - Hyperlipidemia, unspecified, I10 - Essential (primary) hypertension Medications: Refilled amlodipine 5 mg PO DAILY 90 tabs 3RF valsartan 160 mg PO DAILY 90 tabs 3RF Discontinued furosemide (Lasix) 1 qd for 3 days, then 1 qod Discontinued Reason: Doctor's Order 20 mg PO DAILY 7 tabs 0RF metoprolol succinate ER Discontinued Reason: Doctor's Order 25 mg PO DAILY 90 tabs 3RF Coding Level of Care Code Est Pt Level 3 (79597) Diagnoses HTN (hypertension) I10 Hyperlipidemia E78.5
== END 2024-05-05 11:34 | disposition home or self-care (01) ==
PROVIDERS: PCP Internal Medicine; Visit Provider Internal Medicine
DX: I10 Essential (primary) hypertension (principal); E78.5 Hyperlipidemia, unspecified
CPT/HCPCS: 99213

== ENCOUNTER 2024-09-01 08:07 | Outpatient (REF) | payer MEDICARE, SELFPAY ==
[2024-09-01 10:29] LABS: MANUAL DIFF FLAG NO
[2024-09-01 10:42] LABS: Basophils Percent Auto 0.4 % (0-2); Eosinophils Absolute Auto 0.1 X10*3/uL (0.0-0.4); Eosinophils Percent Auto 1.6 % (0-4); Hematocrit 39.9 % (37.0-47.0); Imm Gran Abs Auto 0.01 X10*3/uL (0.00-0.03); Imm Gran Pct Auto 0.2 % (0.0-0.4); Lymphocytes Absolute Auto 2.1 X10*3/uL (1.2-4.9); Lymphocytes Percent Auto 36.7 % (20-40); Mean Corpuscular HGB Conc 32.6 g/dl (31.0-35.0); Mean Corpuscular Hemoglobin 31.7 pg (27.0-33.0); Mean Corpuscular Volume 97.3 fL (80.0-98.0); Mean Platelet Volume 9.9 fL (9.4-12.3); Monocytes Absolute Auto 0.4 X10*3/uL (0.1-1.2); Monocytes Percent Auto 6.6 % (2-11); Neutrophils Absolute Auto 3.1 x10*3/uL (2.0-8.3); Neutrophils Percent Auto 54.5 % (45-73); Platelet Count 224 X10*3/uL (160-400); Red Cell Distribution Width 12.4 % (11.0-16.0); White Blood Count 5.6 X10*3/uL (4.8-10.8)
[2024-09-01 11:19] LABS: Alanine Aminotransferase 16 U/L (0-31); Albumin Level 4.1 g/dL (3.5-5.0); Alkaline Phosphatase 77 U/L (39-117); Anion Gap 11 (12-20); Aspartate Amino Transferase 22 U/L (5-31); Bilirubin Total 0.6 mg/dL (0.0-1.0); Blood Urea Nitrogen 13 mg/dL (9-16); Calcium 9.6 mg/dL (8.4-10.2); Carbon Dioxide 28 mmol/L (22-29); Chloride 104 mmol/L (96-108); Cholesterol 205 mg/dL (<200); Estimated Glomerular Filt Rate > 60; Glucose Fasting 98 mg/dL (60-99); HDL Cholesterol 72 mg/dL (>40); LDL Cholesterol Calculated 121 mg/dL (<100); Potassium 3.9 mmol/L (3.3-5.1); Sodium 139 mmol/L (135-145); Total Protein 7.1 g/dL (6.5-8.0); Triglycerides 62 mg/dL (<150)
[2024-09-01 11:20] LABS: TSH reflex Free T4 0.97 uIU/mL (0.32-4.0)
== END 2024-09-01 08:08 | disposition home or self-care (01) ==
LOC: HO.HMGCLDS 08:07
PROVIDERS: PCP Internal Medicine; Visit Provider Internal Medicine
DX: I10 Essential (primary) hypertension (principal); E78.5 Hyperlipidemia, unspecified
CPT/HCPCS: 36415; 80053; 80061; 84443; 85025

== ENCOUNTER 2024-09-03 07:54 | Outpatient (AMB) | payer MEDICARE, SELFPAY ==
[2024-09-03 08:16] VITALS: BP 134/68; PULSE 68; O2SAT 98; BMI 25.6
--- NOTE | 2024-09-03 08:16 | A.OFFPC_ITS ---
Vital Signs 09/03/24 08:16 Height 5 ft 5 in Weight 154 lb BMI 25.6 BP 134/68 Blood Pressure Location Lt brachial Position Sitting Pulse 68 Pulse Source Pulse Oximeter Pulse Oximetry (%) 98 Oxygen Delivery Method Room Air Intake Visit Reasons: 4 month follow up Intake Note: Pt is here today for 4 months follow up visit on labs. Pt states that she had an episode of dizziness. Pt states that she has a red amisha on her R cheek that is itchy. Pt also states that she has been having memmory issues and her legs are swelling up. Allergies No Known Allergies Allergy (Verified 09/03/24 08:29) Medication List - Last Reconciled 09/03/24 by Tess Kee MD amlodipine 5 mg PO DAILY cholecalciferol (vitamin D3) 50 mcg PO DAILY folic acid 0.4 mg PO DAILY mecobalamin (vitamin B12) 500 mcg PO .QD valsartan 160 mg PO DAILY vitamin T24-hidrg acid 500-400 mcg 1 tab PO DAILY Tobacco use date assessed: 09/03/24 Fall risk assessment: No Falls in past year Last assessed Fall Risk: 09/03/24 Dental Screening Dental Screen Date: 09/03/24 Did you have a dental visit in the last 12 months?: Yes Was dental information given to patient?: Patient has dentist HPI 4 month follow up HPI Details Patient presents for the follow-up of hypertension and diet-controlled hyperlipidemia. Patient is contemplating moving to [place] where her son lives [facility] Medical History Vitamin D deficiency Vitamin B 12 deficiency Normal breast exam HTN (hypertension) Surgical History Hx of lymph node biopsy History of total left knee replacement History of ear surgery Family History Father Stroke Mother No problems noted. Social History Housing: House Patient Tobacco Use Status: Never used Tobacco e-Cigarette/Vaping Use: Never Used service: No Current occupational status: retired Cognitive needs: No Hearing needs: No Vision needs: No Questionnaire Thrive Questionnaire Date Thrive assessed: 05/05/24 I am a: Patient What is your living situation today?: I choose not to answer this question Within the past 12 months, did the food you bought not last and you didn't have the money to get more?: I choose not to answer this question Within the past 12 months, did you worry whether your food would run out before you got money to buy more?: I choose not to answer this question Do you have trouble paying for medicines?: I choose not to answer this question Do you have trouble getting transportation to medical appointments?: I choose not to answer this question Do you have trouble paying your heating and electricity bill?: I choose not to answer this question Do you have trouble taking care of your child, family member or friend?: I choose not to answer this question Do you have trouble with day-to-day activities such as bathing, preparing meals, shopping, managing finances, etc.?: I choose not to answer this question Are you currently unemployed and looking for a job?: I choose not to answer this question Are you interested in more education?: I choose not to answer this question Please select the resources that you would like help with: None Currently or been in a relationship where the following occur: I choose not to answer THRIVE Score: 0 NÉSTOR-7 AMB Questionnaire NÉSTOR-7 Date NÉSTOR - 7 assessed: 05/05/24 Source: Developed by Drs. Jack Pride, Noy Pop, Yomi Julio and colleagues, with an educational baudilio from [employer]. Review of Systems Const All systems reviewed & are unremarkable except as noted in HPI and below ENT Reports no additional complaints Card Reports no additional complaints Resp Reports no additional complaints GI Reports no additional complaints Reports no additional complaints Physical exam (Primary Care) Vital Signs: Last Vital Signs Pulse 68 09/03/24 08:16 BP 134/68 09/03/24 08:16 Pulse Ox 98 09/03/24 08:16 Oxygen Delivery Method Room Air 09/03/24 08:16 BMI result Body Mass Index 25.6 Tobacco/Smoking Status: Tobacco use Status Tobacco use date assessed 09/03/24 09/03/24 08:25 Patient Tobacco Use Status Never used Tobacco 09/03/24 08:19 e-Cigarette/Vaping Use Never Used 09/03/24 08:19 Thrive Assessment: Date of Thrive Assessment Date Thrive assessed 05/05/24 09/03/24 08:19 Currently or been in a relationship where the following occur: I choose not to answer Const General: no acute distress Eyes General: appearance normal, both eyes and all related structures Resp Effort & Inspection: normal respiratory effort Auscultation: clear to auscultation bilaterally Cardio Rhythm: regular rhythm Heart sounds: S1 normal heart sound present and S2 normal heart sound present GI Inspection: Yes normal to inspection Palpation (GI): Soft to palpation Coding Level of Care Code Est Pt Level 4 (18843) Diagnoses Hyperlipidemia E78.5 Vitamin B 12 deficiency E53.8 HTN (hypertension) I10 Assessment & Plan Assessment & Plan (1) Hyperlipidemia: Comment: Diet controlled, patient refuses statin Code(s): E78.5 - Hyperlipidemia, unspecified Category: Medical Plan: Continue low-cholesterol diet and regular exercise (2) Vitamin B 12 deficiency: Code(s): E53.8 - Deficiency of other specified B group vitamins Category: Medical Plan: Continue vitamin B12 supplement (3) HTN (hypertension): Code(s): I10 - Essential (primary) hypertension Category: Medical Plan: Continue amlodipine follow-up in 6 months with a fasting labs before Orders: Orders Lipid Panel 6 Months E53.8 - Deficiency of other specified B group vitamins, E78.5 - Hyperlipidemia, unspecified, I10 - Essential (primary) hypertension Vitamin B12 and Folate 6 Months E53.8 - Deficiency of other specified B group vitamins, E78.5 - Hyperlipidemia, unspecified, I10 - Essential (primary) hypertension Comprehensive Met. Panel 6 Months E53.8 - Deficiency of other specified B group vitamins, E78.5 - Hyperlipidemia, unspecified, I10 - Essential (primary) hyper tension Complete Blood Count Auto Diff 6 Months E53.8 - Deficiency of other specified B group vitamins, E78.5 - Hyperlipidemia, unspecified, I10 - Essential (primary) hypertension Medications: New triamcinolone acetonide 0.025% 1 appl topical DAILY 15 grams 0RF Refilled amlodipine 5 mg PO DAILY 90 tabs 3RF Discontinued valsartan Discontinued Reason: Doctor's Order 160 mg PO DAILY 90 tabs 3RF
== END 2024-09-03 09:16 | disposition home or self-care (01) ==
PROVIDERS: PCP Internal Medicine; Visit Provider Internal Medicine
DX: E78.5 Hyperlipidemia, unspecified (principal); E53.8 Deficiency of other specified B group vitamins; I10 Essential (primary) hypertension

== ENCOUNTER → 2024-09-03 07:54 | Outpatient (BNVA) | payer MEDICARE, SELFPAY | PROVIDERS: PCP Internal Medicine; Visit Provider Internal Medicine | DX: E78.5 Hyperlipidemia, unspecified (principal); E53.8 Deficiency of other specified B group vitamins; I10 Essential (primary) hypertension | CPT/HCPCS: 99212 ==

== ENCOUNTER 2025-01-21 09:55 | Outpatient (AMB) | payer MEDICARE, SELFPAY ==
[2025-01-21 10:09] VITALS: BP 132/66; PULSE 73; RESP 20; TEMP 36.8; O2SAT 96; BMI 25.3
--- NOTE | 2025-01-21 10:09 | A.OFFPC_ITS ---
Vital Signs 01/21/25 10:09 Height 5 ft 5 in Weight 152 lb BMI 25.3 BP 132/66 Blood Pressure Location Lt brachial Position Sitting Respiration 20 Pulse 73 Pulse Source Pulse Oximeter Temp 98.3 F Temp Source Oral Pulse Oximetry (%) 96 Oxygen Delivery Method Room Air Intake Visit Reasons: Annual PE - see comments Intake Note: Pt is here today for PE. Allergies No Known Allergies Allergy (Verified 01/21/25 10:09) Medication List - Last Reconciled 01/21/25 by Tess Kee MD acetaminophen (Tylenol) 325 mg PO QID PRN amlodipine 5 mg PO DAILY cholecalciferol (vitamin D3) 50 mcg PO DAILY folic acid 0.4 mg PO DAILY mecobalamin (vitamin B12) 500 mcg PO .QD sertraline 25 mg PO DAILY triamcinolone acetonide 0.025% 1 appl topical DAILY valsartan 160 mg PO DAILY vitamin V81-bffyi acid 500-400 mcg 1 tab PO DAILY Tobacco use date assessed: 01/21/25 Fall risk assessment: No Falls in past year Last assessed Fall Risk: 01/21/25 Dental Screening Dental Screen Date: 01/21/25 Did you have a dental visit in the last 12 months?: Yes Did you have a dental problem in the last 6 months where you did not have access to dental care?: No Was dental information given to patient?: Patient has dentist HPI Annual PE - see comments HPI Details Pt presents for PE. Patient complains of feeling anxious on and off worse recently, planning the trip to [place] in the summer. She denies change in appetite sleep pattern weight loss, depression PFSH Medical History Vitamin D deficiency Vitamin B 12 deficiency Normal breast exam HTN (hypertension) Surgical History Hx of lymph node biopsy History of total left knee replacement History of ear surgery Family History Father Stroke Mother No problems noted. Social History Housing: House Patient Tobacco Use Status: Never used Tobacco e-Cigarette/Vaping Use: Never Used service: No Current occupational status: retired Cognitive needs: No Hearing needs: No Vision needs: No Questionnaire PHQ-9 Over the last 2 weeks, how often have you been bothered by any of the following problems? 1. Little interest or pleasure in doing things: not at all 2. Feeling down, depressed, or hopeless: several days 3. Trouble falling or staying asleep, or sleeping too much: several days 4. Feeling tired or having little energy: more than half the days 5. Poor appetite or overeating: not at all 6. Feeling bad about yourself - or that you are a failure or have let yourself or your family down: not at all 7. Trouble concentrating on things, such as reading the newspaper or watching television: not at all 8. Moving or speaking so slowly that other people could have noticed. Or the opposite - being so fidgety or restless that you have been moving around a lot more than usual: not at all 9. Thoughts that you would be better off or of hurting yourself in some way: not at all Total score: 4 Depression Screening Interpretation: Negative Depression Screening Done: Yes 31656 - PHQ-9 Billing: Yes Source: Developed by Drs. Jack Pride, Noy Pop, Yomi Julio and colleagues, with an educational baudilio from [employer]. Thrive Questionnaire Date Thrive assessed: 01/21/25 I am a: Patient What is your living situation today?: I choose not to answer this question Within the past 12 months, did the food you bought not last and you didn't have the money to get more?: I choose not to answer this question Within the past 12 months, did you worry whether your food would run out before you got money to buy more?: I choose not to answer this question Do you have trouble paying for medicines?: I choose not to answer this question Do you have trouble getting transportation to medical appointments?: I choose not to answer this question Do you have trouble paying your heating and electricity bill?: I choose not to answer this question Do you have trouble taking care of your child, family member or friend?: I choose not to answer this question Do you have trouble with day-to-day activities such as bathing, preparing meals, shopping, managing finances, etc.?: I choose not to answer this question Are you currently unemployed and looking for a job?: I choose not to answer this question Are you interested in more education?: I choose not to answer this question Please select the resources that you would like help with: None Currently or been in a relationship where the following occur: I choose not to answer THRIVE Score: 0 AUDIT C Alcohol Use Questionnaire (AUDIT-C) 1. How often do you have a drink containing alcohol?: Never 3. How often do you have six or more drinks on one occasion?: Never Total Score: 0 NÉSTOR-7 AMB Questionnaire NÉSTOR-7 Date NÉSTOR - 7 assessed: 01/21/25 Feeling nervous, anxious, or on edge: 0 = Not at all Not being able to stop or control worryin = Not at all Worrying too much about different things: 0 = Not at all Trouble relaxin = Not at all Being so restless that it is hard to sit still: 0 = Not at all Becoming easily annoyed or irritable: 0 = Not at all Feeling afraid as if something awful might happen: 0 = Not at all Total NÉSTOR-7 score (0-4 normal; 5-9 mild; 10-14 moderate; 15-21 severe): 0 Source: Developed by Drs. Jack Pride, Noy Pop, Yomi Julio and colleagues, with an educational baudilio from [employer]. NÉSTOR-7 Assessment Billing NÉSTOR-7 Assessment Tool: NÉSTOR-7 Assessment 61986 Review of Systems Const All systems reviewed & are unremarkable except as noted in HPI and below Eyes Reports no additional complaints ENT Reports no additional complaints Card Reports no additional complaints Resp Reports no additional complaints GI Reports no additional complaints Reports no additional complaints Physical exam (Primary Care) Vital Signs: Last Vital Signs Temp 98.3 F 01/21/25 10:09 Pulse 73 01/21/25 10:09 Resp 20 01/21/25 10:09 BP 132/66 01/21/25 10:09 Pulse Ox 96 01/21/25 10:09 Oxygen Delivery Method Room Air 01/21/25 10:09 BMI result Body Mass Index 25.3 Tobacco/Smoking Status: Tobacco use Status Tobacco use date assessed 01/21/25 01/21/25 10:11 Patient Tobacco Use Status Never used Tobacco 01/21/25 10:11 e-Cigarette/Vaping Use Never Used 01/21/25 10:11 PHQ-9: PHQ-9 Score PHQ-9: Total score 4 01/21/25 11:03 Depression Screening Interpretation: Negative Thrive Assessment: Date of Thrive Assessment Date Thrive assessed 01/21/25 01/21/25 10:11 Currently or been in a relationship where the following occur: I choose not to answer Const General: no acute distress HENMT Head: Yes normal to inspection Ears: hearing grossly normal bilaterally Face and sinus: Yes normal facial exam Mouth: Normal oral and palatal mucosa present Throat: Yes posterior oropharynx normal Eyes General: appearance normal, both eyes and all related structures Neck Neck: Yes no lymphadenopathy and Yes supple Resp Effort & Inspection: normal respiratory effort Auscultation: clear to auscultation bilaterally Cardio Rhythm: regular rhythm Heart sounds: S1 normal heart sound present and S2 normal heart sound present GI Inspection: Yes normal to inspection Palpation (GI): Soft to palpation Percussion: Yes normal to percussion Auscultation: normal bowel sounds Immunizations pneumoc 20-rhett conj-dip cr(PF) 0.5 mL IM syringe Performing Provider: Tess Kee MD Performing Location: [facility] Administered by: PENNY Jonas on 01/21/25 11:03 Dose Route Admin Location Dispensed Lot Number Expiration Date [facility] Office Support Clerk 0.5 mL IM Left Deltoid 0.5 mL [id number] 12/17/25 1720-6912-13 [employer]PFIZER VIS Given Date VIS Provided VIS Publication Date 01/21/25 Single Vaccine 21 Eligibility Eligibility Date Funding Source Not [facility] Eligible 01/21/25 Private Coding Level of Care Code Est Pt Prev Care >65y(62860) Diagnoses Annual physical exam Z00.00 HTN (hypertension) I10 Anxiety F41.9 Additional Codes NÉSTOR-7 Assessment Billing - NÉSTOR-7 Assessment Tool: NÉSTOR-7 Assessment 47509 ([id number]) PHQ-9 - 37269 - PHQ-9 Billing: Yes ([id number]) Assessment & Plan Assessment & Plan (1) Annual physical exam: Code(s): Z00.00 - Encounter for general adult medical examination without abnormal findings Category: Medical Plan: Well-balanced diet regular physical activity discussed with the patient. (2) HTN (hypertension): Code(s): I10 - Essential (primary) hypertension Category: Medical Plan: Continue current medications (3) Anxiety: Code(s): F41.9 - Anxiety disorder, unspecified Category: Medical Plan: Stress management discussed with the patient. She will start sertraline 25 mg daily. follow-up in 5 months Orders: Orders Pneumococcal 20 Immunization Today Z23 - Encounter for immunization Complete Blood Count Auto Diff Today E53.8 - Deficiency of other specified B group vitamins, E55.9 - Vitamin D deficiency, unspecified, I10 - Essential (primary) hypertension Vitamin B12 and Folate Today E53.8 - Deficiency of other specified B group vitamins, E55.9 - Vitamin D deficiency, unspecified, I10 - Essential (primary) hypertension Vitamin D 25-OH Total Today E53.8 - Deficiency of other specified B group vitamins, E55.9 - Vitamin D deficiency, unspecified, I10 - Essential (primary) hypertension Lipid Panel Today E53.8 - Deficiency of other specified B group vitamins, E55.9 - Vitamin D deficiency, unspecified, I10 - Essential (primary) hypertension Comprehensive [place]. Panel Fast Today E53.8 - Deficiency of other specified B group vitamins, E55.9 - Vitamin D deficiency, unspecified, I10 - Essential (primary) hypertension Medications: New sertraline 25 mg PO DAILY 90 tabs 3RF Refilled amlodipine 5 mg PO DAILY 15 tabs 0RF
--- OUTSIDE RECORDS SUMMARY | 2025-01-21 11:12 | XMS_ITS ---
Author Organization [facility] Care Team Providers Care Pulverizer Feeder Name Role Phone Brunilda Butts Unavailable Unavailable Imelda Arias Unavailable Unavailable Janette Rose Unavailable Unavailable Lashonda Choe Unavailable Unavailable Marjorie Paula Unavailable Unavailable Allergies and adverse reactions No Known Allergies Care Team Name Role Address Phone Organization Dates Janette Rose PCP [address] [facility] [address], [place], [address], [facility] (Office): [facility] 06/29/2015 - 07/01/2015 Brunilda Butts Attending Physician [address] [place] [address], [phone], [facility] (Office): [facility] 06/29/2015 - 07/01/2015 Imelda Arias Attending Physician [address] [place] [address], [phone], [facility] (Office): [facility] 06/29/2015 - 07/01/2015 Lashonda Choe Attending Physician [address] [place] [address], [phone], [facility] (Office): [facility] 06/29/2015 - 07/01/2015 Marjorie Paula Attending Physician [address], [place], [address], [place] (Office): [facility] 06/29/2015 - 07/01/2015 Mental Status Section Date Assessment Total Score Description 07/01/2015 BIMS 15 cognitively int act PHQ-9 00 Reason for Referral No Reasons for Referral Entered Social History Social History Observation Description Start Date End Date Code Code System Current Smoking Status Tobacco smoking consumption unknown [id number] SNOMED CT Sex Assigned At Female 1940 66486-6 [facility] Vital Signs Code Code System Vitals Name Values and Units Timing Information 33280-7 [facility] O2 % BldC Oximetry Value=98.0 Units= % 06/30/2015 9279-1 [facility] Respiratory Rate Value=18.0 Units=/m in 06/30/2015 8867-4 [facility] Heart rate Value=84.0 Units=/min 08/2015 8310-5 [facility] Body Temperature Value=98.5 Units=?? F 06/30/2015 8462-4 [facility] Blood Pressure-Diastolic Value=68 Un its=mmHg 06/30/2015 8480-6 [facility] Blood Pressure-Systolic Uhcgr=051 Un its=mmHg 06/30/2015 95094-4 [facility] Weight Cuutd=238.0 Units=Lbs 07/2015 8302-2 [facility] Height Value=68.0 Units=Inches 06/29/2015
== END 2025-01-21 13:56 | disposition home or self-care (01) ==
LOC: HO.HMCC 09:55
PROVIDERS: PCP Internal Medicine; Visit Provider Internal Medicine
DX: Z00.00 Encounter for general adult medical examination without abnormal findings (principal); I10 Essential (primary) hypertension; F41.9 Anxiety disorder, unspecified; Z23 Encounter for immunization

== ENCOUNTER → 2025-01-21 09:55 | Outpatient (BNVA) | payer MEDICARE, SELFPAY | PROVIDERS: PCP Internal Medicine; Visit Provider Internal Medicine | DX: Z00.00 Encounter for general adult medical examination without abnormal findings (principal); I10 Essential (primary) hypertension; F41.9 Anxiety disorder, unspecified; E53.8 Deficiency of other specified B group vitamins; E55.9 Vitamin D deficiency, unspecified; Z23 Encounter for immunization | CPT/HCPCS: 90471; 90677; 96127; 99397 ==

== ENCOUNTER 2025-03-09 08:53 | Outpatient (AMB) | payer MEDICARE, MEDICAID, SELFPAY ==
[2025-03-09 08:57] VITALS: BP 132/66; PULSE 75; RESP 20; TEMP 36.7; O2SAT 96; BMI 24.8
--- NOTE | 2025-03-09 08:57 | MHC.PC.OV ---
Vital Signs 03/09/25 08:57 Height 5 ft 5 in Weight 149 lb BMI 24.8 BP 132/66 Blood Pressure Location Rt brachial Position Sitting Respiration 20 Pulse 75 Pulse Source Pulse Oximeter Temp 98.1 F Temp Source Oral Pulse Oximetry (%) 96 Oxygen Delivery Method Room Air Intake Visit Reasons: ER follow up Intake Note: Pt is here today for ER follow up visit. Allergies No Known Allergies Allergy (Verified 03/09/25 08:59) Medication List - Last Reconciled 03/09/25 by Tess Kee MD acetaminophen (Tylenol) 325 mg PO QID PRN amlodipine 5 mg PO DAILY cholecalciferol (vitamin D3) 50 mcg PO DAILY folic acid 0.4 mg PO DAILY mecobalamin (vitamin B12) 500 mcg PO .QD sertraline 25 mg PO DAILY triamcinolone acetonide 0.025% 1 appl topical DAILY valsartan 160 mg PO DAILY vitamin X77-ohcdr acid 500-400 mcg 1 tab PO DAILY Tobacco use date assessed: 03/09/25 Fall risk assessment: No Falls in past year Last assessed Fall Risk: 03/09/25 Dental Screening Dental Screen Date: 03/09/25 Did you have a dental visit in the last 12 months?: Yes Did you have a dental problem in the last 6 months where you did not have access to dental care?: No Was dental information given to patient?: Patient has dentist HPI ER follow up HPI Details Pt presents for f/u ER visit for a new onset of daily headaches. Neuro and cardiac workup was negative Pt has been under a lot of stress going to [place] in 1 month for her grandson's wedding. She complains of increasing anxiety insomnia stomach upset decreased appetite. She has been taking Zoloft without significant improvement. [facility] Medical History Vitamin D deficiency Vitamin B 12 deficiency Normal breast exam HTN (hypertension) Surgical History Hx of lymph node biopsy History of total left knee replacement History of ear surgery Family History Father Stroke Mother No problems noted. Social History Housing: House Patient Tobacco Use Status: Never used Tobacco e-Cigarette/Vaping Use: Never Used service: No Current occupational status: retired Cognitive needs: No Hearing needs: No Vision needs: No Questionnaire Thrive Questionnaire Date Thrive assessed: 03/09/25 NÉSTOR-7 AMB Questionnaire NÉSTOR-7 Date NÉSTOR - 7 assessed: 01/21/25 Source: Developed by Drs. Jack rPide, Noy Pop, Yomi Julio and colleagues, with an educational baudilio from [employer]. Review of Systems Const All systems reviewed & are unremarkable except as noted in HPI and below Eyes Reports no additional complaints ENT Reports no additional complaints Card Reports no additional complaints Resp Reports no additional complaints GI Reports no additional complaints Reports no additional complaints Physical exam (Primary Care) Vital Signs: Last Vital Signs Temp 98.1 F 03/09/25 08:57 Pulse 75 03/09/25 08:57 Resp 20 03/09/25 08:57 BP 132/66 03/09/25 08:57 Pulse Ox 96 03/09/25 08:57 Oxygen Delivery Method Room Air 03/09/25 08:57 BMI result Body Mass Index 24.8 Tobacco/Smoking Status: Tobacco use Status Tobacco use date assessed 03/09/25 03/09/25 09:04 Patient Tobacco Use Status Never used Tobacco 03/09/25 08:58 e-Cigarette/Vaping Use Never Used 03/09/25 08:58 Thrive Assessment: Date of Thrive Assessment Date Thrive assessed 03/09/25 03/09/25 08:58 Const General: no acute distress HENMT Head: Yes normal to inspection Face and sinus: Yes normal facial exam Eyes General: appearance normal, both eyes and all related structures Neck Neck: Yes supple Resp Effort & Inspection: normal respiratory effort Auscultation: clear to auscultation bilaterally Cardio Rhythm: regular rhythm Heart sounds: S1 normal heart sound present and S2 normal heart sound present Coding Level of Care Code Est Pt Level 4 (26820) Complex EM visit Add On G2211 Diagnoses Anxiety F41.9 Chronic headaches R51.9; G89.29 HTN (hypertension) I10 Assessment & Plan Assessment & Plan (1) Anxiety: Comment: Zoloft caused headaches Code(s): F41.9 - Anxiety disorder, unspecified Category: Medical Plan: Discontinue sertraline and start mirtazapine 7.5 mg q.h.s.. Stress management discussed with the patient follow-up in 2 weeks (2) Chronic headaches: Comment: Tension headaches, negative brain MR,CT 02/2025 Code(s): R51.9 - Headache, unspecified; G89.29 - Other chronic pain Category: Medical Plan: Increasing physical activity stress management mindfulness discussed with the patient. (3) HTN (hypertension): Code(s): I10 - Essential (primary) hypertension Category: Medical Plan: Continue current medications Medications: New mirtazapine 7.5 mg PO BEDTIME 30 tabs 0RF Discontinued sertraline Discontinued Reason: Doctor's Order 25 mg PO DAILY 90 tabs 3RF
== END 2025-03-09 09:29 | disposition home or self-care (01) ==
PROVIDERS: PCP Internal Medicine; Visit Provider Internal Medicine
DX: F41.9 Anxiety disorder, unspecified (principal); R51.9 Headache, unspecified; G89.29 Other chronic pain; I10 Essential (primary) hypertension

== ENCOUNTER → 2025-03-09 08:53 | Outpatient (BNVA) | payer MEDICARE, SELFPAY | PROVIDERS: PCP Internal Medicine; Visit Provider Internal Medicine | DX: F41.9 Anxiety disorder, unspecified (principal); R51.9 Headache, unspecified; G89.29 Other chronic pain; I10 Essential (primary) hypertension | CPT/HCPCS: 99212 ==

== ENCOUNTER 2025-04-08 11:23 | Outpatient (AMB) | payer MEDICARE, MEDICAID, SELFPAY ==
[2025-04-08 11:24] VITALS: BP 118/76; PULSE 77; RESP 18; TEMP 36.8; O2SAT 96; BMI 24.8
--- NOTE | 2025-04-08 11:24 | MHC.PC.OV ---
Vital Signs 04/08/25 11:24 Height 5 ft 5 in Weight 149 lb BMI 24.8 BP 118/76 Blood Pressure Location Lt brachial Position Sitting Respiration 18 Pulse 77 Pulse Source Pulse Oximeter Temp 98.3 F Temp Source Oral Pulse Oximetry (%) 96 Oxygen Delivery Method Room Air Intake Visit Reasons: 2 weeks Follow up Intake Note: Pt is here today for 2 weeks follow up visit on headaches. Allergies No Known Allergies Allergy (Verified 04/08/25 11:26) Medication List - Last Reconciled 04/08/25 by Tess Kee MD acetaminophen (Tylenol) 325 mg PO QID PRN amlodipine 5 mg PO DAILY cholecalciferol (vitamin D3) 50 mcg PO DAILY folic acid 0.4 mg PO DAILY mecobalamin (vitamin B12) 500 mcg PO .QD mirtazapine 7.5 mg PO BEDTIME triamcinolone acetonide 0.025% 1 appl topical DAILY valsartan 160 mg PO DAILY vitamin D72-dyadg acid 500-400 mcg 1 tab PO DAILY Tobacco use date assessed: 04/08/25 Fall risk assessment: No Falls in past year Last assessed Fall Risk: 04/08/25 Dental Screening Dental Screen Date: 04/08/25 HPI 2 weeks Follow up HPI Details Patient presents for the follow-up on hypertension chronic anxiety insomnia. Patient is feeling better, able to sleep at least 6 hours and and anxiety improved significantly. Patient is going to [employer] for 6 weeks. [facility] Medical History (Updated 04/08/25 @ 12:07 by Tess Kee MD) Anxiety Vitamin D deficiency Vitamin B 12 deficiency Normal breast exam HTN (hypertension) Surgical History Hx of lymph node biopsy History of total left knee replacement History of ear surgery Family History Father Stroke Mother No problems noted. Social History Housing: House Patient Tobacco Use Status: Never used Tobacco e-Cigarette/Vaping Use: Never Used service: No Current occupational status: retired Cognitive needs: No Hearing needs: No Vision needs: No Questionnaire Thrive Questionnaire Date Thrive assessed: 03/09/25 NÉSTOR-7 AMB Questionnaire NÉSTOR-7 Date NÉSTOR - 7 assessed: 01/21/25 Source: Developed by Drs. Jack Pride, Noy Pop, Yomi Julio and colleagues, with an educational baudilio from [employer]. Review of Systems Const All systems reviewed & are unremarkable except as noted in HPI and below Eyes Reports no additional complaints ENT Reports no additional complaints Card Reports no additional complaints Resp Reports no additional complaints GI Reports no additional complaints Reports no additional complaints Musc Reports no additional complaints Physical exam (Primary Care) Vital Signs: Last Vital Signs Temp 98.3 F 04/08/25 11:24 Pulse 77 04/08/25 11:24 Resp 18 04/08/25 11:24 BP 118/76 04/08/25 11:24 Pulse Ox 96 04/08/25 11:24 Oxygen Delivery Method Room Air 04/08/25 11:24 BMI result Body Mass Index 24.8 Tobacco/Smoking Status: Tobacco use Status Tobacco use date assessed 04/08/25 04/08/25 11:27 Patient Tobacco Use Status Never used Tobacco 04/08/25 11:27 e-Cigarette/Vaping Use Never Used 04/08/25 11:24 Thrive Assessment: Date of Thrive Assessment Date Thrive assessed 03/09/25 04/08/25 11:24 Const General: no acute distress HENMT Head: Yes normal to inspection Eyes General: appearance normal, both eyes and all related structures Resp Effort & Inspection: normal respiratory effort Auscultation: clear to auscultation bilaterally Cardio Rhythm: regular rhythm Heart sounds: S1 normal heart sound present and S2 normal heart sound present GI Inspection: Yes normal to inspection Auscultation: normal bowel sounds Coding Level of Care Code Est Pt Level 4 (79597) Diagnoses Anxiety F41.9 HTN (hypertension) I10 Assessment & Plan Assessment & Plan (1) Anxiety: Comment: Zoloft caused headaches Code(s): F41.9 - Anxiety disorder, unspecified Category: Medical Plan: Continue mirtazapine well-balanced diet regular physical activity. (2) HTN (hypertension): Code(s): I10 - Essential (primary) hypertension Category: Medical Plan: Continue current medications. For lower extremities dependent edema patient will try furosemide once or twice a week. She was advised to elevate lower extremities and follow low-sodium diet Medications: New valsartan 160 mg PO DAILY 90 tabs 1RF furosemide (Lasix) 20 mg PO DAILY 30 tabs 0RF Refilled amlodipine 5 mg PO DAILY 90 tabs 1RF mirtazapine 7.5 mg PO BEDTIME 90 tabs 1RF
== END 2025-04-08 12:16 | disposition home or self-care (01) ==
LOC: HO.HMCC 11:24
PROVIDERS: PCP Internal Medicine; Visit Provider Internal Medicine
DX: F41.9 Anxiety disorder, unspecified (principal); I10 Essential (primary) hypertension

== ENCOUNTER → 2025-04-08 11:23 | Outpatient (BNVA) | payer MEDICARE, MEDICAID, SELFPAY | PROVIDERS: PCP Internal Medicine; Visit Provider Internal Medicine | DX: F41.9 Anxiety disorder, unspecified (principal); I10 Essential (primary) hypertension | CPT/HCPCS: 99212 ==

== ENCOUNTER 2025-06-27 07:18 | Outpatient (REF) | payer MEDICARE, MEDICAID, SELFPAY ==
[2025-06-27 14:03] LABS: MANUAL DIFF FLAG NO
[2025-06-27 14:05] LABS: Hematocrit 39.0 % (37.0-47.0); Hemoglobin 12.5 g/dl (12.0-16.0); Imm Gran Abs Auto 0.00 X10*3/uL (0.00-0.03); Imm Gran Pct Auto 0.0 % (0.0-0.4); Lymphocytes Absolute Auto 2.0 X10*3/uL (1.2-4.9); Mean Corpuscular HGB Conc 32.1 g/dl (31.0-35.0); Mean Corpuscular Hemoglobin 31.3 pg (27.0-33.0); Mean Corpuscular Volume 97.7 fL (80.0-98.0); NRBC Abs Auto 0.000 X10*3/uL (0.0-0.012); NRBC Pct Auto 0.0 /100WBC (0.0-0.2); Platelet Count 235 X10*3/uL (160-400); Red Blood Count 3.99 X10*6/uL (4.20-5.50); White Blood Count 5.6 X10*3/uL (4.8-10.8)
[2025-06-27 14:53] LABS: Alanine Aminotransferase 13 U/L (0-31); Albumin Level 4.0 g/dL (3.5-5.0); Alkaline Phosphatase 71 U/L (39-117); Anion Gap 13 (12-20); Aspartate Amino Transferase 26 U/L (5-31); Blood Urea Nitrogen 17 mg/dL (9-16); Calcium 9.1 mg/dL (8.4-10.2); Carbon Dioxide 28 mmol/L (22-29); Chloride 106 mmol/L (96-108); Cholesterol 199 mg/dL (<200); Estimated Glomerular Filt Rate > 60; HDL Cholesterol 71 mg/dL (>40); Potassium 4.8 mmol/L (3.3-5.1); Sodium 142 mmol/L (135-145); Total Protein 6.9 g/dL (6.5-8.0); Triglycerides 59 mg/dL (<150)
[2025-06-27 15:09] LABS: Folate 8.8 ng/mL (> or = 4.0); Vitamin B12 318 pg/mL (200-900)
== END 2025-06-27 07:19 | disposition home or self-care (01) ==
LOC: HO.HMGCLDS 07:18
PROVIDERS: PCP Internal Medicine; Visit Provider Internal Medicine
DX: E53.8 Deficiency of other specified B group vitamins (principal); I10 Essential (primary) hypertension; E55.9 Vitamin D deficiency, unspecified
CPT/HCPCS: 36415; 80053; 80061; 82306; 82607; 82746; 85025

== ENCOUNTER 2025-06-29 08:48 | Outpatient (AMB) | payer MEDICARE, SELFPAY ==
--- NOTE | 2025-06-29 08:57 | MHC.PC.OV ---
Vital Signs 06/29/25 08:58 Height 5 ft 5 in Weight 152 lb BMI 25.3 BP 124/76 Blood Pressure Location Lt brachial Position Sitting Respiration 19 Pulse 79 Pulse Source Pulse Oximeter Temp 98.1 F Temp Source Oral Pulse Oximetry (%) 98 Oxygen Delivery Method Room Air Intake Visit Reasons: 6 months follow up Intake Note: Pt is here today for 6 months follow up visit. Pt states that she was in [place] and she was walking a lot and she has been having frequent urination, she started drinking cranberry juice and it got better. Allergies No Known Allergies Allergy (Verified 06/29/25 08:58) Medication List - Last Reconciled 06/29/25 by Tess Kee MD acetaminophen (Tylenol) 325 mg PO QID PRN amlodipine 5 mg PO DAILY cholecalciferol (vitamin D3) 50 mcg PO DAILY folic acid 0.4 mg PO DAILY furosemide (Lasix) 20 mg PO DAILY mecobalamin (vitamin B12) 500 mcg PO .QD mirtazapine 7.5 mg PO BEDTIME triamcinolone acetonide 0.025% 1 appl topical DAILY valsartan 160 mg PO DAILY vitamin O20-utupl acid 500-400 mcg 1 tab PO DAILY Tobacco use date assessed: 06/29/25 Fall risk assessment: No Falls in past year Last assessed Fall Risk: 06/29/25 Dental Screening Dental Screen Date: 04/08/25 HPI 6 months follow up HPI Details Pt presents for f/u HTN, chronic anxiety, stable on meds PFSH Medical History Anxiety Vitamin D deficiency Vitamin B 12 deficiency Normal breast exam HTN (hypertension) Surgical History Hx of lymph node biopsy History of total left knee replacement History of ear surgery Family History Father Stroke Mother No problems noted. Social History Housing: House Patient Tobacco Use Status: Never used Tobacco e-Cigarette/Vaping Use: Never Used service: No Current occupational status: retired Cognitive needs: No Hearing needs: No Vision needs: No Questionnaire PHQ-9 Over the last 2 weeks, how often have you been bothered by any of the following problems? 1. Little interest or pleasure in doing things: not at all 2. Feeling down, depressed, or hopeless: several days 3. Trouble falling or staying asleep, or sleeping too much: several days 4. Feeling tired or having little energy: more than half the days 5. Poor appetite or overeating: not at all 6. Feeling bad about yourself - or that you are a failure or have let yourself or your family down: not at all 7. Trouble concentrating on things, such as reading the newspaper or watching television: not at all 8. Moving or speaking so slowly that other people could have noticed. Or the opposite - being so fidgety or restless that you have been moving around a lot more than usual: not at all 9. Thoughts that you would be better off or of hurting yourself in some way: not at all Total score: 4 Depression Screening Interpretation: Negative Depression Screening Done: Yes Source: Developed by Drs. Jack Pride, Yomi Rodriguez and colleagues, with an educational baudilio from [employer]. Thrive Questionnaire Date Thrive assessed: 03/09/25 NÉSTOR-7 AMB Questionnaire NÉSTOR-7 Date NÉSTOR - 7 assessed: 01/21/25 Feeling nervous, anxious, or on edge: 0 = Not at all Not being able to stop or control worryin = Not at all Worrying too much about different things: 0 = Not at all Trouble relaxin = Not at all Being so restless that it is hard to sit still: 0 = Not at all Becoming easily annoyed or irritable: 0 = Not at all Feeling afraid as if something awful might happen: 0 = Not at all Total NÉSTOR-7 score (0-4 normal; 5-9 mild; 10-14 moderate; 15-21 severe): 0 Source: Developed by Drs. Jack Pride, Yomi Rodriguez and colleagues, with an educational baudilio from [employer]. Review of Systems Const All systems reviewed & are unremarkable except as noted in HPI and below Eyes Reports no additional complaints ENT Reports no additional complaints Card Reports no additional complaints Resp Reports no additional complaints GI Reports no additional complaints Physical exam (Primary Care) Vital Signs: Last Vital Signs Temp 98.1 F 06/29/25 08:58 Pulse 79 06/29/25 08:58 Resp 19 06/29/25 08:58 BP 124/76 06/29/25 08:58 Pulse Ox 98 06/29/25 08:58 Oxygen Delivery Method Room Air 06/29/25 08:58 BMI result Body Mass Index 25.3 Tobacco/Smoking Status: Tobacco use Status Tobacco use date assessed 06/29/25 06/29/25 09:00 Patient Tobacco Use Status Never used Tobacco 06/29/25 09:00 e-Cigarette/Vaping Use Never Used 06/29/25 09:00 PHQ-9: PHQ-9 Score PHQ-9: Total score 4 06/29/25 09:08 Depression Screening Interpretation: Negative Thrive Assessment: Date of Thrive Assessment Date Thrive assessed 03/09/25 06/29/25 09:00 Const General: no acute distress HENMT Head: Yes normal to inspection Face and sinus: Yes normal facial exam Mouth: Normal oral and palatal mucosa present Throat: Yes posterior oropharynx normal Eyes General: appearance normal, both eyes and all related structures Neck Neck: Yes no lymphadenopathy and Yes supple Resp Effort & Inspection: normal respiratory effort Auscultation: clear to auscultation bilaterally Cardio Rhythm: regular rhythm Heart sounds: S1 normal heart sound present and S2 normal heart sound present GI Inspection: Yes normal to inspection Palpation (GI): Soft to palpation Percussion: Yes normal to percussion Auscultation: normal bowel sounds Coding Level of Care Code Est Pt Level 4 (80518) Diagnoses Anxiety F41.9 HTN (hypertension) I10 Hyperlipidemia E78.5 Assessment & Plan Assessment & Plan (1) Anxiety: Comment: Zoloft caused headaches Code(s): F41.9 - Anxiety disorder, unspecified Category: Medical Plan: cont Mirtazapine (2) HTN (hypertension): Code(s): I10 - Essential (primary) hypertension Category: Medical Plan: Continue current medications (3) Hyperlipidemia: Comment: Diet controlled, patient refuses statin Code(s): E78.5 - Hyperlipidemia, unspecified Category: Medical Plan: Continue low-cholesterol diet , follow-up in 6 months with a fasting labs before Orders: Orders UA w Microscopic Today R30.0 - Dysuria Urine Culture Today R30.0 - Dysuria Complete Blood Count Auto Diff 6 Months E78.5 - Hyperlipidemia, unspecified, I10 - Essential (primary) hypertension Comprehensive [place]. Panel Fast 6 Months E78.5 - Hyperlipidemia, unspecified, I10 - Essential (primary) hypertension Lipid Panel 6 Months E78.5 - Hyperlipidemia, unspecified, I10 - Essential (primary) hypertension Medications: Refilled amlodipine 5 mg PO DAILY 90 tabs 3RF mirtazapine 7.5 mg PO BEDTIME 90 tabs 3RF valsartan 160 mg PO DAILY 90 tabs 3RF
[2025-06-29 08:58] VITALS: BP 124/76; PULSE 79; RESP 19; TEMP 36.7; O2SAT 98; BMI 25.3
== END 2025-06-29 09:45 | disposition home or self-care (01) ==
LOC: HO.HMCC 08:49
PROVIDERS: PCP Internal Medicine; Visit Provider Internal Medicine
DX: F41.9 Anxiety disorder, unspecified (principal); I10 Essential (primary) hypertension; E78.5 Hyperlipidemia, unspecified

== ENCOUNTER 2025-06-29 08:48 | Outpatient (REF) | payer MEDICARE, SELFPAY ==
[2025-06-29 13:52] LABS: Appearance Urine Clear; Glucose Urine UA Negative (Negative); PH 7.0 (5.0-9.0); Specific Gravity - Urine <= 1.005 (1.005-1.025); UMIC TRIGGER UA YES
== END 2025-06-29 08:49 | disposition home or self-care (01) ==
LOC: HO.HMGCLDS 08:48
PROVIDERS: PCP Internal Medicine; Visit Provider Internal Medicine
DX: R30.0 Dysuria (principal); I10 Essential (primary) hypertension; F41.9 Anxiety disorder, unspecified; E78.5 Hyperlipidemia, unspecified; Z79.899 Other long term (current) drug therapy
CPT/HCPCS: 81001; 87086; 99212